=== PATIENT | male | born 1975 | race Asian ===

== ENCOUNTER 2021-12-04 11:05 | Outpatient (CLI) | payer BC | END 2021-12-04 23:59 | disposition home or self-care (01) | LOC: WOU 11:05 | PROVIDERS: ATTEND Podiatrist Foot & Ankle Surgery | DX: E11.69 Type 2 diabetes mellitus with other specified complication (principal); M86.671 Other chronic osteomyelitis, right ankle and foot; B38.7 Disseminated coccidioidomycosis; R60.0 Localized edema; M25.571 Pain in right ankle and joints of right foot; Z79.4 Long term (current) use of insulin; Z79.84 Long term (current) use of oral hypoglycemic drugs | CPT/HCPCS: G0463 ==

== ENCOUNTER → 2021-12-28 | Outpatient (CLI) | payer BC | END | disposition home or self-care (01) | LOC: WOU 10:10 | PROVIDERS: ATTEND Podiatrist Foot & Ankle Surgery | DX: E11.622 Type 2 diabetes mellitus with other skin ulcer (principal); L97.312 Non-pressure chronic ulcer of right ankle with fat layer exposed; E11.69 Type 2 diabetes mellitus with other specified complication; M86.171 Other acute osteomyelitis, right ankle and foot; Z79.4 Long term (current) use of insulin; Z79.84 Long term (current) use of oral hypoglycemic drugs; B38.7 Disseminated coccidioidomycosis; R60.0 Localized edema; M25.571 Pain in right ankle and joints of right foot | CPT/HCPCS: G0463 ==

== ENCOUNTER 2022-01-02 10:10 | Outpatient (CLI) | payer BC | END 2022-01-02 23:59 | disposition home or self-care (01) | LOC: WOU 10:10 | PROVIDERS: ATTEND Specialist | DX: E11.69 Type 2 diabetes mellitus with other specified complication (principal); M86.171 Other acute osteomyelitis, right ankle and foot; B38.7 Disseminated coccidioidomycosis; E11.621 Type 2 diabetes mellitus with foot ulcer; L97.412 Non-pressure chronic ulcer of right heel and midfoot with fat layer exposed; Z79.4 Long term (current) use of insulin; Z79.84 Long term (current) use of oral hypoglycemic drugs; R60.0 Localized edema; M25.571 Pain in right ankle and joints of right foot | CPT/HCPCS: G0463 ==

== ENCOUNTER 2022-01-14 12:46 | Outpatient (CLI) | payer BC | END 2022-01-14 23:59 | disposition home or self-care (01) | LOC: MRI 12:46 | PROVIDERS: ATTEND Podiatrist Foot & Ankle Surgery | DX: S93.491A Sprain of other ligament of right ankle, initial encounter (principal); M25.471 Effusion, right ankle; M65.871 Other synovitis and tenosynovitis, right ankle and foot; M25.871 Other specified joint disorders, right ankle and foot; X58.XXXA Exposure to other specified factors, initial encounter; Y93.89 Activity, other specified; Y92.89 Other specified places as the place of occurrence of the external cause; Y99.8 Other external cause status | CPT/HCPCS: 73721-TC ==

== ENCOUNTER → 2022-01-15 | Outpatient (CLI) | payer BC ==
[2022-01-15 12:55] LABS: BASOPHILS # (AUTO) 0.1 K/uL (0.0-0.2); BASOPHILS % (AUTO) 1.2 % (0.0-2.0); HEMATOCRIT 50 % (39-51); HEMOGLOBIN 16.5 g/dL (13.5-17.5); LYMPHOCYTES # (AUTO) 0.8 K/uL (0.8-4.8); LYMPHOCYTES % (AUTO) 9.5 % (20.0-44.0); MEAN CORPUSCULAR HGB CONC 33 g/dl (31.0-36.0); MEAN CORPUSCULAR VOLUME 89 fL (80-96); MONOCYTES # (AUTO) 0.6 K/uL (0.1-1.30); MONOCYTES % (AUTO) 7.6 % (2.0-12.0); NEUTROPHILS # (AUTO) 6.4 K/uL (1.8-8.9); NEUTROPHILS % (AUTO) 78.7 % (43.0-81.0); PLATELET COUNT (AUTO) 273 K/uL (150-450); RED BLOOD CELL COUNT(AUTO) 5.64 MIL/uL (4.5-6.0); WHITE BLOOD COUNT (AUTO) 8.1 K/uL (4.3-11.0)
== END | disposition home or self-care (01) ==
LOC: LAB 12:31
PROVIDERS: ATTEND Specialist
DX: R91.8 Other nonspecific abnormal finding of lung field (principal); M79.89 Other specified soft tissue disorders; M77.51 Other enthesopathy of right foot and ankle; M25.571 Pain in right ankle and joints of right foot; M86.171 Other acute osteomyelitis, right ankle and foot; R05.9 Cough, unspecified
CPT/HCPCS: 36415; 71046; 73600-TC; 85025-TC; 85652-TC; 86140-TC

== ENCOUNTER 2022-01-25 08:50 | Outpatient (CLI) | payer BC | END 2022-01-25 23:59 | disposition home or self-care (01) | LOC: WOU 08:50 | PROVIDERS: ATTEND Podiatrist Foot & Ankle Surgery | DX: E11.622 Type 2 diabetes mellitus with other skin ulcer (principal); L97.312 Non-pressure chronic ulcer of right ankle with fat layer exposed; E11.69 Type 2 diabetes mellitus with other specified complication; M86.171 Other acute osteomyelitis, right ankle and foot; Z79.84 Long term (current) use of oral hypoglycemic drugs; Z79.4 Long term (current) use of insulin; B38.7 Disseminated coccidioidomycosis | CPT/HCPCS: G0463 ==

== ENCOUNTER 2022-02-14 12:31 | Outpatient (CLI) | payer BC ==
[2022-02-14 13:37] LABS: BASOPHILS # (AUTO) 0.1 K/uL (0.0-0.2); BASOPHILS % (AUTO) 0.9 % (0.0-2.0); HEMATOCRIT 50 % (39-51); HEMOGLOBIN 16.3 g/dL (13.5-17.5); LYMPHOCYTES # (AUTO) 0.6 K/uL (0.8-4.8); MEAN CORPUSCULAR HGB CONC 33 g/dl (31.0-36.0); MEAN CORPUSCULAR VOLUME 88 fL (80-96); MONOCYTES # (AUTO) 0.5 K/uL (0.1-1.30); MONOCYTES % (AUTO) 6.4 % (2.0-12.0); NEUTROPHILS # (AUTO) 6.3 K/uL (1.8-8.9); NEUTROPHILS % (AUTO) 79.7 % (43.0-81.0); PLATELET COUNT (AUTO) 291 K/uL (150-450); RED BLOOD CELL COUNT(AUTO) 5.69 MIL/uL (4.5-6.0); WHITE BLOOD COUNT (AUTO) 7.9 K/uL (4.3-11.0)
== END 2022-02-14 23:59 | disposition home or self-care (01) ==
LOC: LAB 12:31
PROVIDERS: ATTEND Podiatrist Foot & Ankle Surgery
DX: M86.171 Other acute osteomyelitis, right ankle and foot (principal)
CPT/HCPCS: 36415; 85025-TC; 85652-TC; 86140-TC

== ENCOUNTER 2022-02-20 13:00 | Outpatient (CLI) | payer BC | END 2022-02-20 23:59 | disposition home or self-care (01) | LOC: WOU 13:00 | PROVIDERS: ATTEND Podiatrist Foot & Ankle Surgery | DX: E11.622 Type 2 diabetes mellitus with other skin ulcer (principal); L97.312 Non-pressure chronic ulcer of right ankle with fat layer exposed; E11.69 Type 2 diabetes mellitus with other specified complication; M86.171 Other acute osteomyelitis, right ankle and foot; R60.0 Localized edema; B38.7 Disseminated coccidioidomycosis; M25.571 Pain in right ankle and joints of right foot; Z79.4 Long term (current) use of insulin; Z79.84 Long term (current) use of oral hypoglycemic drugs | CPT/HCPCS: 11042; 87077; 87070; 87186; A6209 ==

== ENCOUNTER 2022-02-22 10:45 | Outpatient (CLI) | payer BC ==
[2022-02-22] MEDS ORDERED: LIDOCAINE SOLN 4% 50 ML BOTTLE ONE (11:06)
[2022-02-22] MEDS ORDERED: FLUC200T8 PO (17:46)
[2022-02-22] MEDS ORDERED: INSU100V7 SQ (17:46)
[2022-02-22] MEDS ORDERED: INSU100C10 SQ (17:46)
[2022-02-22] MEDS ORDERED: METF-442 PO (17:46)
[2022-02-22] MEDS ORDERED: EZET10TA16 PO (17:46)
[2022-02-22] MEDS ORDERED: ROSU40TA PO (17:46)
[2022-02-22] MEDS ORDERED: OMEG1CAP55 PO (17:46)
[2022-02-22] MEDS ORDERED: IRBE150T28 PO (17:46)
[2022-02-22] MEDS ORDERED: FENO145T21 PO (17:46)
== END 2022-02-22 23:59 | disposition home or self-care (01) ==
LOC: WOU 10:45
PROVIDERS: ATTEND Podiatrist Foot & Ankle Surgery
DX: E11.622 Type 2 diabetes mellitus with other skin ulcer (principal); L97.312 Non-pressure chronic ulcer of right ankle with fat layer exposed; E11.69 Type 2 diabetes mellitus with other specified complication; M86.171 Other acute osteomyelitis, right ankle and foot; Z79.4 Long term (current) use of insulin; Z79.84 Long term (current) use of oral hypoglycemic drugs; B38.7 Disseminated coccidioidomycosis; M25.571 Pain in right ankle and joints of right foot
CPT/HCPCS: G0463

== ENCOUNTER 2022-02-22 16:22 | Inpatient (IN) | payer BC ==
[~2022-02-22] VITALS: Ht 185.4 cm; Wt 95.3 kg
[2022-02-22] MEDS ORDERED: ROSU40TA PO (17:46)
[2022-02-22] MEDS ORDERED: EZET10TA16 PO (17:46)
[2022-02-22] MEDS ORDERED: FLUC200T8 PO (17:46)
[2022-02-22] MEDS ORDERED: INSU100C10 SQ (17:46)
[2022-02-22] MEDS ORDERED: IRBE150T28 PO (17:46)
[2022-02-22] MEDS ORDERED: OMEG1CAP55 PO (17:46)
[2022-02-22] MEDS ORDERED: INSU100V7 SQ (17:46)
[2022-02-22] MEDS ORDERED: METF-442 PO (17:46)
[2022-02-22] MEDS ORDERED: FENO145T21 PO (17:46)
--- NOTE | 2022-02-22 17:50 | NUR ---
SALINE LOCK ESTABLISHED, BLOOD DRAWN AND SENT TO LAB
--- NOTE | 2022-02-22 18:00 | NUR ---
COVID SWAB DONE AND SENT TO LAB
[2022-02-22 18:14] LABS: BASOPHILS # (AUTO) 0.1 K/uL (0.0-0.2); BASOPHILS % (AUTO) 0.9 % (0.0-2.0); EOSINOPHILS % (AUTO) 3.3 % (0.0-6.0); HEMATOCRIT 51 % (39-51); HEMOGLOBIN 16.6 g/dL (13.5-17.5); LYMPHOCYTES # (AUTO) 0.5 K/uL (0.8-4.8); LYMPHOCYTES % (AUTO) 5.3 % (20.0-44.0); MEAN CORPUSCULAR HGB CONC 33 g/dl (31.0-36.0); MEAN CORPUSCULAR VOLUME 89 fL (80-96); MONOCYTES # (AUTO) 0.6 K/uL (0.1-1.30); MONOCYTES % (AUTO) 7.7 % (2.0-12.0); NEUTROPHILS % (AUTO) 82.8 % (43.0-81.0); PLATELET COUNT (AUTO) 317 K/uL (150-450); RED BLOOD CELL COUNT(AUTO) 5.68 MIL/uL (4.5-6.0); WHITE BLOOD COUNT (AUTO) 8.5 K/uL (4.3-11.0)
--- NOTE | 2022-02-22 18:23 | NUR ---
TAKEN TO CT VIA CARLOS
[2022-02-22] MEDS ORDERED: MAG HYDROX/AL HYDROX/SIMETH 30 ML UDC PO PRN (18:30)
[2022-02-22] MEDS ORDERED: ACETAMINOPHEN 325 MG TABLET PO PRN (18:30)
[2022-02-22] MEDS ORDERED: DEXTROSE 50%-WATER 50 ML DISP.SYRIN IV PRN (18:30)
[2022-02-22] MEDS ORDERED: ONDANSETRON HCL/PF 4 MG/2 ML VIAL IVP PRN (18:30)
[2022-02-22] MEDS ORDERED: hydrALAZINE HCL IV 20 MG VIAL IV PRN (18:30)
[2022-02-22 18:40] LABS: ALBUMIN 1.6 g/dL (3.4-5.0); BILIRUBIN,DIRECT 0.1 mg/dL (0.0-0.2); BILIRUBIN,TOTAL 0.4 mg/dL (0.2-1.0); CREATININE 1.2 mg/dL (0.6-1.3); POTASSIUM 4.2 mmol/L (3.5-5.1); TOTAL PROTEIN, SERUM 5.5 g/dL (6.4-8.2)
[2022-02-22] MEDS ORDERED: VANCOMYCIN 1 GM in IV D5W 250 ML IV ONE (19:00)
[2022-02-22] MEDS ORDERED: ENOXAPARIN SODIUM 40 MG/0.4 ML DISP.SYRIN SQ SCH (19:00)
[2022-02-22] MEDS ORDERED: ENOXAPARIN SODIUM 40 MG/0.4 ML DISP.SYRIN SQ ONE (19:14)
--- NOTE | 2022-02-22 19:45 | NUR ---
ROOM 309-2
--- NOTE | 2022-02-22 20:06 | NUR ---
REPORT GIVEN TO JOSE RANDLE FOR KARI
[2022-02-22] MEDS ORDERED: VANCOMYCIN 500 MG in IV D5W 100ml IV ONE (20:30)
[2022-02-22 20:35] VITALS: BP 122/76
--- NOTE | 2022-02-22 20:39 | NUR ---
PT TRANSFERRED TO 3W VIA ACLS PROTOCOL. VSS. ALL BELONGINGS WITH PT.
[2022-02-22 21:00] VITALS: BP 122/76
--- NOTE | 2022-02-22 21:00 | NUR ---
MS RN OPENING NOTES RECEIVED PATIENT FROM ER VIA [place]. PATIENT IS STABLE, AMBULATORY, AWAKE, ALERT AND ORIENTED X 4. ABLE TO MAKE NEEDS KNOWN. BREATHING EVEN AND NONLABORED. ON ROOM AIR; TOLERATED WELL. VS TAKEN AND RECORDED FOLLOWS: TEMP-98.3, WA-94, RR-20, 02 SAT-98%, BP-122/76. WITH IV ACCESS ON LEFT FOREARM 20g; PATENT, INTACT AND SALINE LOCKED. BODY ASSESSMENT DONE: SKIN WARM TO TOUCH. PICTURES TAKEN AND PLACE TO CHART. INVENTORY OF PERSONAL BELONGINGS DONE. ORIENTED TO STAFF, ROOM AND UNIT. SAFETY MEASURES IMPLEMENTED: CALL LIGHT AND TABLE WITHIN REACH, SIDE RAILS UP X 2, BED IN LOWEST LOCKED POSITION. WILL CONTINUE TO MONITOR
[2022-02-22] MEDS ORDERED: MAGNESIUM HYDROXIDE 30 ML UDC PO PRN (22:00)
[2022-02-22] MEDS ORDERED: ZOLPIDEM TARTRATE 5 MG TABLET PO PRN (22:00)
[2022-02-22] MEDS: BLOOD SUGAR DIAGNOSTIC 1 EACH STRIP IN SCH (22:58)
[2022-02-22] MEDS: MEROPENEM 500 MG in IV NS 0.9% 50 ML IV SCH (23:21)
[2022-02-22] MEDS: INSULIN REGULAR, HUMAN 100 UNIT/ML 3 ML VIAL SQ PRN (23:25)
[2022-02-22] MEDS: HYDROCODONE/APAP 5/325MG TABLET PO PRN (23:39)
--- NOTE | 2022-02-22 23:39 | NUR ---
RN NOTES PATIENT C/O RIGHT ANKLE PAIN 12/23. PRN NORCO 5/325 MG 1 TAB GIVEN PO ORDERED; WILL CONTINUE TO MONITOR AND REASSESS PT.
[2022-02-23] MEDS: MEROPENEM 500 MG in IV NS 0.9% 50 ML IV SCH ×3 (05:30→21:00)
[2022-02-23 06:30] LABS: BASOPHILS # (AUTO) 0.1 K/uL (0.0-0.2); BASOPHILS % (AUTO) 1.2 % (0.0-2.0); EOSINOPHILS % (AUTO) 5.3 % (0.0-6.0); HEMATOCRIT 45 % (39-51); HEMOGLOBIN 14.6 g/dL (13.5-17.5); LYMPHOCYTES # (AUTO) 0.6 K/uL (0.8-4.8); LYMPHOCYTES % (AUTO) 8.7 % (20.0-44.0); MEAN CORPUSCULAR HGB CONC 33 g/dl (31.0-36.0); MEAN CORPUSCULAR VOLUME 89 fL (80-96); MONOCYTES # (AUTO) 0.7 K/uL (0.1-1.30); NEUTROPHILS # (AUTO) 4.9 K/uL (1.8-8.9); NEUTROPHILS % (AUTO) 74.8 % (43.0-81.0); PLATELET COUNT (AUTO) 253 K/uL (150-450); RED BLOOD CELL COUNT(AUTO) 5.02 MIL/uL (4.5-6.0); WHITE BLOOD COUNT (AUTO) 6.6 K/uL (4.3-11.0)
[2022-02-23] MEDS: BLOOD SUGAR DIAGNOSTIC 1 EACH STRIP IN SCH ×4 (06:33→22:02)
--- NOTE | 2022-02-23 06:55 | NUR ---
MS RN CLOSING NOTES PATIENT IN BED; AWAKE, A/O X 4. BREATHING EVEN AND NONLABORED. STABLE ON ROOM AIR. WITH IV ACCESS @ LEFT FOREARM 20g; PATENT, INTACT AND SALINE LOCKED. ALL NEEDS MET. SAFETY MEASURES MAINTAINED: CALL LIGHT AND TABLE WITHIN REACH, SIDE RAILS UP X 2, BED IN LOWEST LOCKED POSITION. ENDORSED TO PEPPER GARCIA FOR KARI.
--- NOTE | 2022-02-23 07:00 | NUR ---
MS RN OPENING NOTES PATIENT A/O X 4, ABLE TO MAKE NEEDS KNOWN, TOLERATING WELL ON ROOM AIR WITH NO S/S RESPIRATORY DISTRESS. NO COMPLAINTS OF PAIN OR DISCOMFORT. L FA # 20 G SL CLEAN, INTACT, AND FLUSHING WELL. SAFETY MEASURES IN PLACE: BED IN LOWEST LOCKED POSITION, SIDE RAILS UP X 2, CALL LIGHT WITHIN REACH. WILL CONTINUE TO MONITOR.
[2022-02-23 07:05] LABS: MAGNESIUM 2.3 mg/dL (1.8-2.4); PHOSPHORUS 4.7 mg/dL (2.5-4.9); POTASSIUM 3.9 mmol/L (3.5-5.1)
[2022-02-23 08:00] VITALS: BP 111/74
[2022-02-23] MEDS: VANCOMYCIN 1.25 GM in IV D5W 250 ML IV SCH ×2 (08:11→20:24)
[2022-02-23] MEDS: EZETIMIBE 10 MG TABLET PO SCH (08:11)
[2022-02-23] MEDS: LOSARTAN POTASSIUM 50 MG TABLET PO SCH (08:11)
[2022-02-23] MEDS: FENOFIBRATE NANOCRYS (145 MG) 145 MG TABLET PO SCH (08:12)
[2022-02-23] MEDS: ATORVASTATIN 40 MG TABLET PO SCH (08:12)
[2022-02-23] MEDS: INSULIN GLARGINE, 100 UNIT/ML CARTRIDGE SQ SCH ×2 (08:20→16:30)
[2022-02-23] MEDS ORDERED: Medication Not On Formulary EA (Omega-3 Acid Ethyl Esters (Lovaza) 1 GM) PO SCH (09:00)
[2022-02-23] MEDS ORDERED: Medication Not On Formulary EA (Irbesartan (Avapro) 150 MG) PO SCH (09:00)
[2022-02-23] MEDS ORDERED: Medication Not On Formulary EA (Rosuvastatin Calcium (Crestor) 40 MG) PO SCH (09:00)
[2022-02-23] MEDS ORDERED: Z GUARD REMEDY 4 OZ OINT TP PRN (09:00)
[2022-02-23 16:00] VITALS: BP 107/76
[2022-02-23] MEDS ORDERED: FENTANYL PF 100MCG/2ML AMPUL ONE ×2 (16:05→17:44)
[2022-02-23] MEDS ORDERED: SUCCINYLCHOLINE CHLORIDE 20 MG/ML VIAL ONE (16:05)
[2022-02-23] MEDS ORDERED: VANCOMYCIN 1 GM VIAL ONE (17:08)
[2022-02-23] MEDS: HYDROCODONE/APAP 5/325MG TABLET PO PRN (18:53)
--- NOTE | 2022-02-23 19:56 | NUR ---
RECEIVED PATIENT IN BED, ALERT/ORIENTED X4, ROOM AIR, MINIMAL COMPLAIN OF PAIN, S/P RIGHT ANKLE DEBRIDEMENT BY DR. MANZANO, RIGHT ANKLE WITH SAMEERA WRAP WITH TOES EXPOSED, ICE APPLIED, DENIES NUMBNESS, ABLE TO WIGGLE TOES, BRISK CAPILLARY REFILL, KEPT RIGHT FOOT ELEVATED. KEPT SAFE, WILL CONTINUE TO MONITOR.
[2022-02-23 20:00] VITALS: BP 100/69
[2022-02-23] MEDS: MORPHINE SULFATE INJ 4 MG/ML DISP.SYRIN IV PRN ×2 (20:54→21:35)
[2022-02-23 21:00] VITALS: BP 101/72
[2022-02-23 22:00] VITALS: BP 102/68
[2022-02-23] MEDS: INSULIN REGULAR, HUMAN 100 UNIT/ML 3 ML VIAL SQ PRN (22:00)
[2022-02-24] VITALS: BP 121/63
[2022-02-24] MEDS: MEROPENEM 500 MG in IV NS 0.9% 50 ML IV SCH ×3 (04:16→20:22)
--- NOTE | 2022-02-24 06:02 | NUR ---
S/P right ankle debridement by Dr. Kramer, alert/oriented x4, room air, pain managed by Currie 1 tablet and Morphine 4 mg IV with adequate relief. Dressing dry and intact, bias wrap, ras wrap, offloaded, denies numbness, able to wiggle toes, brisk capillary refill, NWB for now. Lovenox q24hrs, restart at 0700. Vancomycin and Merrem, continue pain control, accucheck ACHS with sliding scale, fall precaution.
[2022-02-24 06:20] LABS: BASOPHILS # (AUTO) 0.1 K/uL (0.0-0.2); BASOPHILS % (AUTO) 1.1 % (0.0-2.0); EOSINOPHILS % (AUTO) 3.1 % (0.0-6.0); HEMATOCRIT 47 % (39-51); HEMOGLOBIN 15.3 g/dL (13.5-17.5); LYMPHOCYTES # (AUTO) 0.5 K/uL (0.8-4.8); LYMPHOCYTES % (AUTO) 5.7 % (20.0-44.0); MEAN CORPUSCULAR HGB CONC 32 g/dl (31.0-36.0); MEAN CORPUSCULAR VOLUME 90 fL (80-96); MONOCYTES # (AUTO) 0.9 K/uL (0.1-1.30); MONOCYTES % (AUTO) 9.9 % (2.0-12.0); NEUTROPHILS % (AUTO) 80.2 % (43.0-81.0); PLATELET COUNT (AUTO) 269 K/uL (150-450); RED BLOOD CELL COUNT(AUTO) 5.23 MIL/uL (4.5-6.0); WHITE BLOOD COUNT (AUTO) 8.7 K/uL (4.3-11.0)
[2022-02-24] MEDS: ENOXAPARIN SODIUM 40 MG/0.4 ML DISP.SYRIN SQ SCH (06:20)
[2022-02-24] MEDS: BLOOD SUGAR DIAGNOSTIC 1 EACH STRIP IN SCH ×4 (06:31→22:49)
[2022-02-24] MEDS: INSULIN REGULAR, HUMAN 100 UNIT/ML 3 ML VIAL SQ PRN ×3 (06:40→22:48)
--- NOTE | 2022-02-24 07:00 | NUR ---
MS RN OPENING NOTES PATIENT LAYING IN BED A/O X 4, ABLE TO MAKE NEEDS KNOWN, TOLERATING WELL ON ROOM AIR WITH NO S/S RESPIRATORY DISTRESS. NO COMPLAINTS OF PAIN OR DISCOMFORT. L FA # 20 G SL CLEAN, INTACT, AND FLUSHING WELL. L WRIST # 20 G SL CLEAN, INTACT, AND FLUSHING WELL. LEFT LEG WITH SAMEERA BANDAGE DRESSING C/D/I. SAFETY MEASURES IN PLACE: BED IN LOWEST LOCKED POSITION, SIDE RAILS UP X 2, CALL LIGHT WITHIN REACH. WILL CONTINUE TO MONITOR.
[2022-02-24] MEDS: VANCOMYCIN 1.25 GM in IV D5W 250 ML IV SCH ×2 (07:55→20:21)
[2022-02-24 08:00] LABS: CALCIUM, SERUM 7.8 mg/dL (8.5-10.1); CREATININE 1.1 mg/dL (0.6-1.3); POTASSIUM 4.6 mmol/L (3.5-5.1)
[2022-02-24] MEDS: ATORVASTATIN 40 MG TABLET PO SCH (08:46)
[2022-02-24] MEDS: FENOFIBRATE NANOCRYS (145 MG) 145 MG TABLET PO SCH (08:46)
[2022-02-24] MEDS: LOSARTAN POTASSIUM 50 MG TABLET PO SCH (08:46)
[2022-02-24] MEDS: EZETIMIBE 10 MG TABLET PO SCH (08:46)
[2022-02-24] MEDS: INSULIN GLARGINE, 100 UNIT/ML CARTRIDGE SQ SCH ×2 (08:55→17:40)
[2022-02-24 20:00] VITALS: BP 105/85
--- NOTE | 2022-02-24 20:01 | NUR ---
MS RN OPENING NOTES PATIENT IN BED AA/O X 4, ABLE TO MAKE NEEDS KNOWN, TOLERATING WELL ON ROOM AIR WITH NO SIGN SOB/RESPIRATORY DISTRESS NOTED.L FA # 20 G SL CLEAN, INTACT, AND FLUSHING WELL.S/P RIGHT ANKLE DEBRIDEMENT BANDAGE INTACT NO BLEEDING NOTED. SAFETY MEASURES IN PLACE: BED IN LOWEST LOCKED POSITION, SIDE RAILS UP X 2, CALL LIGHT WITHIN REACH. WILL CONTINUE TO MONITOR.
[2022-02-24] MEDS: HYDROCODONE/APAP 5/325MG TABLET PO PRN (20:33)
[2022-02-25] MEDS: MEROPENEM 500 MG in IV NS 0.9% 50 ML IV SCH ×2 (04:46→13:09)
[2022-02-25] MEDS: ENOXAPARIN SODIUM 40 MG/0.4 ML DISP.SYRIN SQ SCH (06:09)
--- NOTE | 2022-02-25 06:39 | NUR ---
MS RN CLOSING NOTES; PATIENT IN BED AA/O X 4, ABLE TO MAKE NEEDS KNOWN, TOLERATING WELL ON ROOM AIR WITH NO SIGN SOB/RESPIRATORY DISTRESS NOTED.DUE MEDS GIVEN ORDER,ALL NEEDS ATTENDED,L FA # 20 G SL CLEAN, INTACT, AND FLUSHING WELL.S/P RIGHT ANKLE DEBRIDEMENT BANDAGE INTACT NO BLEEDING NOTED. SAFETY MEASURES IN PLACE: BED IN LOWEST LOCKED POSITION, SIDE RAILS UP X 2, CALL LIGHT WITHIN REACH. WILL ENDORSED TO NEXT SHIFT.
[2022-02-25 06:53] LABS: BASOPHILS # (AUTO) 0.1 K/uL (0.0-0.2); BASOPHILS % (AUTO) 0.8 % (0.0-2.0); EOSINOPHILS % (AUTO) 2.2 % (0.0-6.0); HEMATOCRIT 48 % (39-51); HEMOGLOBIN 15.4 g/dL (13.5-17.5); LYMPHOCYTES # (AUTO) 0.4 K/uL (0.8-4.8); LYMPHOCYTES % (AUTO) 4.8 % (20.0-44.0); MEAN CORPUSCULAR HGB CONC 32 g/dl (31.0-36.0); MEAN CORPUSCULAR VOLUME 90 fL (80-96); MONOCYTES # (AUTO) 0.8 K/uL (0.1-1.30); MONOCYTES % (AUTO) 8.7 % (2.0-12.0); NEUTROPHILS # (AUTO) 7.3 K/uL (1.8-8.9); NEUTROPHILS % (AUTO) 83.5 % (43.0-81.0); PLATELET COUNT (AUTO) 255 K/uL (150-450); RED BLOOD CELL COUNT(AUTO) 5.31 MIL/uL (4.5-6.0); WHITE BLOOD COUNT (AUTO) 8.7 K/uL (4.3-11.0)
--- NOTE | 2022-02-25 07:16 | NUR ---
MS RN OPENING NOTE PATIENT IN BED A/O X 4, ABLE TO MAKE NEEDS KNOWN, TOLERATING WELL ON ROOM AIR WITH NO SIGN SOB/RESPIRATORY DISTRESS NOTED. WITH LEFT FA G 20A ND L WRIST G 20 PATENT AND INTACT. WITH RIGHT ANKLE DRESSING COVERED WITH ELASTIC BANDAGE. NO SIGNS OF BLEEDING. NO COMPLAIN OF PAIN. WILL CONTINUE TO MONITOR PATIENT. SAFETY MEASURES IN PLACE: BED IN LOWEST LOCKED POSITION, SIDE RAILS UP X 2, CALL LIGHT WITHIN REACH. WILL CONTINUE TO MONITOR.
[2022-02-25] MEDS: BLOOD SUGAR DIAGNOSTIC 1 EACH STRIP IN SCH ×4 (08:01→22:37)
[2022-02-25] MEDS: VANCOMYCIN 1.25 GM in IV D5W 250 ML IV SCH (08:08)
[2022-02-25 08:21] LABS: CALCIUM, SERUM 7.8 mg/dL (8.5-10.1); CREATININE 0.9 mg/dL (0.6-1.3)
[2022-02-25] MEDS: EZETIMIBE 10 MG TABLET PO SCH (08:43)
[2022-02-25] MEDS: FENOFIBRATE NANOCRYS (145 MG) 145 MG TABLET PO SCH (08:43)
[2022-02-25] MEDS: LOSARTAN POTASSIUM 50 MG TABLET PO SCH (08:43)
[2022-02-25] MEDS: ATORVASTATIN 40 MG TABLET PO SCH (08:43)
[2022-02-25] MEDS: FUROSEMIDE 20 MG/2 ML VIAL IV SCH (09:04)
[2022-02-25] MEDS: INSULIN GLARGINE, 100 UNIT/ML CARTRIDGE SQ SCH ×2 (09:17→18:14)
[2022-02-25 10:04] VITALS: BP 131/90
--- NOTE | 2022-02-25 11:12 | NUR ---
WOUND CARE CONSULT: PT FOLLOWED BY DR KENNEY FOR WOUND TREATMENT. DEFER TO DPM. CURRENT BARON SCORE IS 23. WILL SEE PRN.
[2022-02-25] MEDS: HYDROCODONE/APAP 5/325MG TABLET PO PRN ×2 (13:19→22:16)
[2022-02-25] MEDS ORDERED: CEFAZOLIN 1 GM VIAL IM SCH (13:30)
[2022-02-25] MEDS: CEFAZOLIN 2 GM in IV D5W 100 ML IV SCH ×2 (14:34→21:45)
[2022-02-25 17:55] VITALS: BP 104/78
[2022-02-25] MEDS: INSULIN REGULAR, HUMAN 100 UNIT/ML 3 ML VIAL SQ PRN ×2 (18:17→22:20)
--- NOTE | 2022-02-25 19:00 | NUR ---
MS RN CLOSING NOTE PATIENT IN BED A/O X 4, ABLE TO MAKE NEEDS KNOWN, TOLERATING WELL ON ROOM AIR WITH NO SIGN SOB/RESPIRATORY DISTRESS NOTED. WITH LEFT FA G 20A ND L WRIST G 20 PATENT AND INTACT. WITH RIGHT ANKLE DRESSING COVERED WITH ELASTIC BANDAGE. NO SIGNS OF BLEEDING. NO COMPLAIN OF PAIN. WILL CONTINUE TO MONITOR PATIENT. SAFETY MEASURES IN PLACE: BED IN LOWEST LOCKED POSITION, SIDE RAILS UP X 2, CALL LIGHT WITHIN REACH. WILL ENDORSE TO NEXT SHIFT FOR CONTINUITY OF CARE.
--- NOTE | 2022-02-25 19:40 | NUR ---
MS RN CLOSING NOTES; PATIENT IN BED AA/O X 4, ABLE TO MAKE NEEDS KNOWN, TOLERATING WELL ON ROOM AIR WITH NO SIGN SOB/RESPIRATORY DISTRESS NOTED.DUE MEDS GIVEN ORDER,ALL NEEDS ATTENDED,RAC 22G-SL PATENT AND INTACT FLUSHING WELL.S/P RIGHT ANKLE DEBRIDEMENT BANDAGE INTACT NO BLEEDING NOTED. SAFETY MEASURES IN PLACE: BED IN LOWEST LOCKED POSITION, SIDE RAILS UP X 2, CALL LIGHT WITHIN REACH. WILL ENDORSED TO NEXT SHIFT.
[2022-02-25 20:00] VITALS: BP 101/74
[2022-02-26] MEDS: CEFAZOLIN 2 GM in IV D5W 100 ML IV SCH ×2 (04:48→13:13)
[2022-02-26 06:10] LABS: BASOPHILS % (AUTO) 0.7 % (0.0-2.0); EOSINOPHILS % (AUTO) 5.3 % (0.0-6.0); HEMATOCRIT 47 % (39-51); HEMOGLOBIN 15.1 g/dL (13.5-17.5); LYMPHOCYTES # (AUTO) 0.5 K/uL (0.8-4.8); LYMPHOCYTES % (AUTO) 8.5 % (20.0-44.0); MEAN CORPUSCULAR HGB CONC 32 g/dl (31.0-36.0); MEAN CORPUSCULAR VOLUME 90 fL (80-96); MONOCYTES # (AUTO) 0.6 K/uL (0.1-1.30); MONOCYTES % (AUTO) 9.3 % (2.0-12.0); NEUTROPHILS # (AUTO) 4.6 K/uL (1.8-8.9); NEUTROPHILS % (AUTO) 76.2 % (43.0-81.0); PLATELET COUNT (AUTO) 308 K/uL (150-450); RED BLOOD CELL COUNT(AUTO) 5.23 MIL/uL (4.5-6.0); WHITE BLOOD COUNT (AUTO) 6.1 K/uL (4.3-11.0)
[2022-02-26] MEDS: ENOXAPARIN SODIUM 40 MG/0.4 ML DISP.SYRIN SQ SCH ×2 (06:19→09:35)
--- NOTE | 2022-02-26 06:29 | NUR ---
MS RN CLOSING NOTES; PATIENT IN BED AA/O X 4, ABLE TO MAKE NEEDS KNOWN, TOLERATING WELL ON ROOM AIR WITH NO SIGN SOB/RESPIRATORY DISTRESS NOTED.DUE MEDS GIVEN ORDER,ALL NEEDS ATTENDED,RAC 22 G SL , INTACT, AND FLUSHING WELL.S/P RIGHT ANKLE DEBRIDEMENT BANDAGE INTACT NO BLEEDING NOTED. SAFETY MEASURES IN PLACE: BED IN LOWEST LOCKED POSITION, SIDE RAILS UP X 2, CALL LIGHT WITHIN REACH. WILL ENDORSED TO NEXT SHIFT.
[2022-02-26] MEDS: BLOOD SUGAR DIAGNOSTIC 1 EACH STRIP IN SCH ×3 (06:43→17:07)
[2022-02-26 07:05] LABS: CALCIUM, SERUM 8.3 mg/dL (8.5-10.1); CREATININE 0.9 mg/dL (0.6-1.3); POTASSIUM 4.3 mmol/L (3.5-5.1)
--- NOTE | 2022-02-26 07:42 | NUR ---
MS RN OPENING NOTE PATIENT IN BED, ASLEEP BUT EASILY ROUSED, A/O X 4, ABLE TO MAKE NEEDS KNOWN. PT ON ROOM AIR WITH NO S/S OF SOB/ACUTE DISTRESS NOTED. IV ACCESS LEFT FA G 20A ND L WRIST G 20 PATENT AND INTACT. RIGHT ANKLE DRESSING COVERED WITH ELASTIC BANDAGE NOTED NO SIGNS OF BLEEDING. NO COMPLAIN OF PAIN. WILL CONTINUE TO MONITOR PATIENT. SAFETY MEASURES IN PLACE: BED IN LOWEST LOCKED POSITION, SIDE RAILS UP X 2, CALL LIGHT WITHIN REACH. WILL CONTINUE TO MONITOR.
[2022-02-26 08:00] VITALS: BP 110/70
[2022-02-26 08:17] LABS: C-REACTIVE PROTEIN 1.8 mg/dL (0.0-0.9)
[2022-02-26] MEDS: EZETIMIBE 10 MG TABLET PO SCH (09:31)
[2022-02-26] MEDS: LOSARTAN POTASSIUM 50 MG TABLET PO SCH (09:32)
[2022-02-26] MEDS: FUROSEMIDE 20 MG/2 ML VIAL IV SCH (09:33)
[2022-02-26] MEDS: ATORVASTATIN 40 MG TABLET PO SCH (09:33)
[2022-02-26] MEDS: FENOFIBRATE NANOCRYS (145 MG) 145 MG TABLET PO SCH (09:36)
[2022-02-26] MEDS: INSULIN GLARGINE, 100 UNIT/ML CARTRIDGE SQ SCH ×2 (09:41→17:07)
[2022-02-26] MEDS: INSULIN REGULAR, HUMAN 100 UNIT/ML 3 ML VIAL SQ PRN (12:57)
[2022-02-26] MEDS: HYDROCODONE/APAP 5/325MG TABLET PO PRN (15:41)
[2022-02-26 16:00] VITALS: BP 108/67
--- NOTE | 2022-02-26 19:32 | NUR ---
MS SUPERVISOR SELF SERVICE STORE NOTES: PT STABLE UPON DISCHARGE, VITALS WNL. BELONGINGS CHECKLIST, DC INSTRUCTIONS AND NEW PRESCRIPTIONS DISCUSSED WITH PT AND SIGNED BY PT AND RN. ALL DUE MEDICATIONS GIVEN. SPOUSE HELPED PATIENT GET DRESSED. ADVISED TO FOLLOW UP WITH [employer] ARCHITECT FOR CPM AND HOME PHARM[facility] FOR RX, VERBALIZED UNDERSTANDING. IV ACCESS AND ID BAND REMOVED. PT ESCORTED TO LOBBY BY STAFF VIA WHEELCHAIR @ 1900, USED PRIVATE CAR TRANSPORTATION. Addendum: 02/26/22 at 1936 by SURINDER PEPE RN ERROR, PLEASE DISREGARD THIS ENTRY FOR THIS PT
--- NOTE | 2022-02-26 19:36 | NUR ---
MS SENIOR INFRASTRUCTURE ARCHITECT NOTES: PT CONDITION STABLE UPON DISCHARGE. VITALS WNL. DISCHARGE INSTRUCTIONS DISCUSSED AND SIGNED BY STAFF AND PT, VALUABLES RECONCILED AND SIGNED. PICC LINE LEFT IN PLACE FOR IV ANTIBIOTICS FOR HH, PER MD ORDER. IV ACCESS, ID BAND REMOVED. PT ESCORTED TO LOBBY BY STAFF VIA WHEELCHAIR @ 1910. MET WITH SPOUSE AT THE FRONT PARKING LOT WITH PRIVATE CAR.
== END 2022-02-26 19:35 | disposition home or self-care (01) | DRG 623 ==
LOC: ER 16:26 → TRANSITION 18:29 → MED 20:00
PROVIDERS: ADMIT Nurse Practitioner Acute Care; ATTEND Internal Medicine
PROC: 0JBQ0ZZ Excision of Right Foot Subcutaneous Tissue and Fascia, Open Approach (ICD-10-PCS; principal; 2022-02-24)
PROC: 0SBF0ZZ Excision of Right Ankle Joint, Open Approach (ICD-10-PCS; 2022-02-24)
PROC: 02HV33Z Insertion of Infusion Device into Superior Vena Cava, Percutaneous Approach (ICD-10-PCS; 2022-02-26)
PROC: B548ZZA Ultrasonography of Superior Vena Cava, Guidance (ICD-10-PCS; 2022-02-26)
DX: E11.69 Type 2 diabetes mellitus with other specified complication (principal); K86.1 Other chronic pancreatitis; L97.319 Non-pressure chronic ulcer of right ankle with unspecified severity; M86.671 Other chronic osteomyelitis, right ankle and foot; E11.621 Type 2 diabetes mellitus with foot ulcer; I10 Essential (primary) hypertension; M19.071 Primary osteoarthritis, right ankle and foot; I87.8 Other specified disorders of veins; Z79.4 Long term (current) use of insulin; E78.1 Pure hyperglyceridemia; Z90.79 Acquired absence of other genital organ(s); Z79.84 Long term (current) use of oral hypoglycemic drugs; Z79.899 Other long term (current) drug therapy; E11.65 Type 2 diabetes mellitus with hyperglycemia
CPT/HCPCS: 36415; 71045-TC; 73700-TC; 80048-TC; 80061-TC; 80076-TC; 80202-TC; 82962-TC; 83605-TC; 83735-TC; 84100-TC; 85025-TC; 85652-TC; 85730-TC; 86140-TC; 87040-TC; 87070-TC; 87075-TC; 87081-TC; 87186-TC; 93970-TC; A4217; A6253; A6403; G0378; J0330; J0690; J1650; J1815; J1885; J1940; J2185; J2270; J2370; J2405; J2704; J3010; J3370; J3490; J7030; J7040; J7050; J7060

== ENCOUNTER 2022-03-08 10:50 | Outpatient (CLI) | payer BC ==
[~2022-03-08 10:50] MED LIST: EZET10TA16 PO; FENO145T21 PO; FLUC200T8 PO; INSU100C10 SQ; INSU100V7 SQ; IRBE150T28 PO; METF-442 PO; OMEG1CAP55 PO; ROSU40TA PO
[2022-03-21] MEDS ORDERED: APIX5TAB PO (09:59)
== END 2022-03-08 23:59 | disposition home or self-care (01) ==
LOC: WOU 10:50
PROVIDERS: ATTEND Podiatrist Foot & Ankle Surgery
DX: E11.622 Type 2 diabetes mellitus with other skin ulcer (principal); L97.312 Non-pressure chronic ulcer of right ankle with fat layer exposed; E11.69 Type 2 diabetes mellitus with other specified complication; M86.171 Other acute osteomyelitis, right ankle and foot; B38.7 Disseminated coccidioidomycosis; L03.115 Cellulitis of right lower limb; M00.80 Arthritis due to other bacteria, unspecified joint; T81.31XA Disruption of external operation (surgical) wound, not elsewhere classified, initial encounter; M25.571 Pain in right ankle and joints of right foot; R60.0 Localized edema; Z79.4 Long term (current) use of insulin; Z79.84 Long term (current) use of oral hypoglycemic drugs
CPT/HCPCS: 29581; A6207

== ENCOUNTER 2022-03-15 09:10 | Outpatient (CLI) | payer BC ==
[2022-03-15] MEDS ORDERED: UREA 10% -AHA 4% CREAM 57 GM TUBE ONE (09:33)
[2022-03-21] MEDS ORDERED: APIX5TAB PO (09:59)
== END 2022-03-15 23:59 | disposition home or self-care (01) ==
LOC: WOU 09:10
PROVIDERS: ATTEND Podiatrist Foot & Ankle Surgery
DX: E11.622 Type 2 diabetes mellitus with other skin ulcer (principal); L97.318 Non-pressure chronic ulcer of right ankle with other specified severity; E11.69 Type 2 diabetes mellitus with other specified complication; M86.171 Other acute osteomyelitis, right ankle and foot; B38.7 Disseminated coccidioidomycosis; M00.80 Arthritis due to other bacteria, unspecified joint; I87.2 Venous insufficiency (chronic) (peripheral); R60.0 Localized edema; M25.571 Pain in right ankle and joints of right foot; Z79.4 Long term (current) use of insulin; Z79.84 Long term (current) use of oral hypoglycemic drugs
CPT/HCPCS: 29581; A6207

== ENCOUNTER 2022-03-19 09:58 | Inpatient (IN) | payer BC ==
[~2022-03-19] VITALS: Ht 185.4 cm; Wt 102.5 kg
--- NOTE | 2022-03-19 10:39 | NUR ---
BUE swelling, since yesterday. on 3 week of 6 weeks iv antibiotic course. sent for further eval. On room air, breathing normally and unlabored. Kept comfortable, will continue to monitor accordingly.
--- NOTE | 2022-03-19 10:40 | NUR ---
blood drawned from the picc line and sent to lab.
[2022-03-19 10:49] LABS: BASOPHILS # (AUTO) 0.1 K/uL (0.0-0.2); BASOPHILS % (AUTO) 0.7 % (0.0-2.0); EOSINOPHILS % (AUTO) 2.5 % (0.0-6.0); HEMATOCRIT 48 % (39-51); HEMOGLOBIN 15.4 g/dL (13.5-17.5); LYMPHOCYTES # (AUTO) 0.5 K/uL (0.8-4.8); LYMPHOCYTES % (AUTO) 4.2 % (20.0-44.0); MEAN CORPUSCULAR HGB CONC 32 g/dl (31.0-36.0); MEAN CORPUSCULAR VOLUME 89 fL (80-96); MONOCYTES # (AUTO) 0.8 K/uL (0.1-1.30); MONOCYTES % (AUTO) 6.8 % (2.0-12.0); NEUTROPHILS # (AUTO) 9.8 K/uL (1.8-8.9); NEUTROPHILS % (AUTO) 85.8 % (43.0-81.0); PLATELET COUNT (AUTO) 222 K/uL (150-450); RED BLOOD CELL COUNT(AUTO) 5.41 MIL/uL (4.5-6.0); WHITE BLOOD COUNT (AUTO) 11.4 K/uL (4.3-11.0)
[2022-03-19 11:27] LABS: ALANINE AMINOTRANSFERASE 13 U/L (12-78); ALKALINE PHOSPHATASE 116 U/L (46-116); ASPARTATE AMINOTRANSFERASE 12 U/L (15-37); BILIRUBIN,DIRECT 0.1 mg/dL (0.0-0.2); BILIRUBIN,TOTAL 0.2 mg/dL (0.2-1.0); CALCIUM, SERUM 7.6 mg/dL (8.5-10.1); CARBON DIOXIDE 25 mmol/L (21-32); CHLORIDE 105 mmol/L (98-107); CREATININE 0.8 mg/dL (0.6-1.3); GLUCOSE 195 mg/dL (74-106); POTASSIUM 3.8 mmol/L (3.5-5.1); SODIUM SERUM 136 mmol/L (136-145); TOTAL PROTEIN, SERUM 4.2 g/dL (6.4-8.2); UREA NITROGEN, BLOOD 22 mg/dL (7-18)
[2022-03-19 11:40] LABS: ALBUMIN 1.3 g/dL (3.4-5.0)
--- NOTE | 2022-03-19 11:48 | NUR ---
covid swab collected and sent to lab.
[2022-03-19] MEDS ORDERED: CEFA1VIA19 IV (11:58)
[2022-03-19] MEDS ORDERED: FURO-144 PO (11:58)
--- NOTE | 2022-03-19 12:00 | NUR ---
called nursing sup regarding pt pic line nurse
--- NOTE | 2022-03-19 12:04 | NUR ---
CALLED NURSING [employer] MANAGER REGARDING PT BED
--- NOTE | 2022-03-19 12:26 | NUR ---
CALLED DR KENNEY, SPEAKING WITH DR DIEHL
--- NOTE | 2022-03-19 13:57 | NUR ---
GOING TO ROOM 109.
[2022-03-19] MEDS ORDERED: ENOXAPARIN SODIUM 100 MG/ML DISP.SYRIN SQ ONE ×2 (14:00→14:15)
--- NOTE | 2022-03-19 14:02 | NUR ---
Carlos ward in [facility] - 03/19/22 at 1413 by JEREMIAH room assigned 320.2
[2022-03-19] MEDS ORDERED: ENOXAPARIN SODIUM 40 MG/0.4 ML DISP.SYRIN SQ ONE (14:11)
--- NOTE | 2022-03-19 14:19 | NUR ---
report given to RN. awaiting transfer to floor.
[2022-03-19 14:28] VITALS: BP 116/76
--- NOTE | 2022-03-19 14:28 | NUR ---
AUDIO RECORDING ENGINEER ADMITTING NOTES PATIENT ADMITTED FROM ER, DX PULMONARY EMBOLISM, PT JUST HAD RIGHT ARTHROTOMY C/O DR. MORALES, WAS SENT TO ER DUE TO SWELLING ON LEFT UPPER EXTREMITY. PT RECEIVED IV ANTIBIOTIC AND ON 3RD WEEK OF 6 WEEKS. PATIENT ALERT ORIENTED X 4, ON ROOM AIR O2 SAT AT 100%, DENIES SOB, RESPIRATION UNLABORED. SINUS TACHY ON MONITOR HR 106-110, DENIES ANY CHEST PAIN OR DISCOMFORT. PAT MIDLINE IN PLACE PATENT INTACT CDI DRESSING. CCHO DIET. PATIENT WITH BANDAGE ON RT LOWER LEG, UNABLE TO TAKE PICTURE, PER PT, WILL WAIT FOR DR. MORALES. LEFT UPPER ARM SWOLLEN, NON PITTING, LEFT LOWER LEF WITH +3 TO +4 PITTING EDEMA. PATIENT ABLE TO AMBULATE TO BATHROOM WITH UNNA BOOT AND ASSIST. UNIT ORIENTATION DONE AND USE OF CALL LIGHT. BED PLACED LOW,LOCKED. SR UP X 2. ALL SAFETY MEASURES IN PLACE. INSTRUCTED TO CALL FOR ASSIST. WILL CONT TO MONITOR.
[2022-03-19 16:00] VITALS: BP 120/72
[2022-03-19] MEDS ORDERED: ONDANSETRON HCL/PF 4 MG/2 ML VIAL IVP PRN (16:00)
[2022-03-19] MEDS ORDERED: MAG HYDROX/AL HYDROX/SIMETH 30 ML UDC PO PRN (16:00)
[2022-03-19] MEDS ORDERED: *INSULIN REGULAR(HUMULIN R)HUM 100 UNIT/ML VIAL SQ PRN (16:00)
[2022-03-19] MEDS ORDERED: HYDROCODONE/APAP 5/325MG TABLET PO PRN (16:00)
[2022-03-19] MEDS ORDERED: ACETAMINOPHEN 325 MG TABLET PO PRN (16:00)
[2022-03-19] MEDS ORDERED: MAGNESIUM HYDROXIDE 30 ML UDC PO PRN (16:00)
[2022-03-19] MEDS ORDERED: Z GUARD REMEDY 4 OZ OINT TP PRN (16:00)
[2022-03-19] MEDS ORDERED: DEXTROSE 50%-WATER 50 ML DISP.SYRIN IV PRN (16:00)
[2022-03-19] MEDS: BLOOD SUGAR DIAGNOSTIC 1 EACH STRIP VI SCH ×2 (17:13→22:32)
[2022-03-19] MEDS: INSULIN GLARGINE, 100 UNIT/ML CARTRIDGE SQ SCH (17:24)
--- NOTE | 2022-03-19 18:52 | NUR ---
RN NOTES ALL NEEDS MET AT HIS TIME. PATIENT RESTING COMFORTABLY. NOT IN ANY DISTRESS. STABLE. WILL ENDORSE TO NEXT SHIFT FOR KARI.
--- NOTE | 2022-03-19 19:44 | NUR ---
RN OPENING NOTES: RECEIVED PATIENT IN BED, AWAKE, ALERT/ORIENTED X3-4 AND VERBALLY RESPONSIVE. ON ROOM AIR AND PT TOLERATED WELL. BREATHING EVEN AND UNLABORED. IV ACCESS ON PAT MIDLINE INTACT AND PATENT. NO C/O PAIN OR DISCOMFORT. NO ACUTE DISTRESS. AMBULATORY WITH ASSIST. OFFERED URINAL. LEFT UPPER ARM NOTED WITH NON PITTING EDEMA AND LLE +3 TO +4 PITTING EDEMA. ALL SAFETY MEASURES IN PLACE. SIDE RAILS UP X2, BED IN LOWEST POSITION AND LOCKED. PLACE CALL LIGHT WITH IN REACH. WILL CONTINUE TO MONITOR.
[2022-03-19 20:00] VITALS: BP 137/68
[2022-03-19] MEDS: CEFAZOLIN 1 GM in IV D5W 50 ML IV SCH (21:15)
--- NOTE | 2022-03-19 22:42 | NUR ---
RN NOTES: PT'S BLOOD SUGAR 195. 3 UNITS OF REGULAR INSULIN GIVEN. PT TOLERATED WELL. NO S/S OF HYPER/HYPOGLYCEMIA. WILL CONTINUE TO MONITOR
[2022-03-20] VITALS: BP 113/86
[2022-03-20 04:00] VITALS: BP 119/76
[2022-03-20] MEDS: CEFAZOLIN 1 GM in IV D5W 50 ML IV SCH ×3 (04:17→20:19)
[2022-03-20 06:34] LABS: BASOPHILS # (AUTO) 0.1 K/uL (0.0-0.2); BASOPHILS % (AUTO) 0.9 % (0.0-2.0); EOSINOPHILS % (AUTO) 3.8 % (0.0-6.0); HEMATOCRIT 45 % (39-51); HEMOGLOBIN 14.7 g/dL (13.5-17.5); LYMPHOCYTES # (AUTO) 0.5 K/uL (0.8-4.8); LYMPHOCYTES % (AUTO) 5.7 % (20.0-44.0); MEAN CORPUSCULAR HGB CONC 32 g/dl (31.0-36.0); MEAN CORPUSCULAR VOLUME 88 fL (80-96); MONOCYTES # (AUTO) 0.7 K/uL (0.1-1.30); MONOCYTES % (AUTO) 8.4 % (2.0-12.0); NEUTROPHILS # (AUTO) 6.9 K/uL (1.8-8.9); NEUTROPHILS % (AUTO) 81.2 % (43.0-81.0); PLATELET COUNT (AUTO) 174 K/uL (150-450); RED BLOOD CELL COUNT(AUTO) 5.16 MIL/uL (4.5-6.0); WHITE BLOOD COUNT (AUTO) 8.5 K/uL (4.3-11.0)
--- NOTE | 2022-03-20 06:45 | NUR ---
RN CLOSING NOTES: PATIENT IN BED, AWAKE, ALERT/ORIENTED X3-4 AND VERBALLY RESPONSIVE. ON ROOM AIR AND PT TOLERATED WELL. O2 SAT 97%. BREATHING EVEN AND UNLABORED. IV ACCESS ON PAT MIDLINE INTACT AND PATENT. NO C/O PAIN OR DISCOMFORT. NO ACUTE DISTRESS. AMBULATORY WITH ASSIST. ABLE TO USE URINAL.ALL DUE MEDS GIVEN ORDERED. ALL SAFETY MEASURES IN PLACE. SIDE RAILS UP X2, BED IN LOWEST POSITION AND LOCKED. PLACE CALL LIGHT WITH IN REACH. WILL ENDORSE TO MORNING SHIFT NURSE.
--- NOTE | 2022-03-20 07:30 | NUR ---
RN OPENING NOTE RECEIVED PATIENT IN BED, AWAKE, ALERT AND ORIENTED X4. PATIENT IS VERBALLY RESPONSIVE AND ABLE TO MAKE NEEDS KNOWN. PATIENT COMPLAINS OF NO PAIN OR DISCOMFORT.PAT MIDLINE INTACT AND PATENT.AMBULATORY WITH BOOT.PATIENT HAS BILATERAL UPPER AND LOWER EDEMA.ALL SAFETY MEASURES IN PLACE. SIDE RAILS UP X2, BED IN LOWEST POSITION AND LOCKED. PLACE CALL LIGHT WITH IN REACH.SIDE RAILS UP X2.
[2022-03-20 07:33] LABS: CALCIUM, SERUM 7.7 mg/dL (8.5-10.1); CREATININE 0.7 mg/dL (0.6-1.3); MAGNESIUM 1.7 mg/dL (1.8-2.4); POTASSIUM 4.2 mmol/L (3.5-5.1)
[2022-03-20] MEDS: BLOOD SUGAR DIAGNOSTIC 1 EACH STRIP VI SCH ×4 (07:51→21:41)
[2022-03-20 08:00] VITALS: BP 128/69
[2022-03-20] MEDS: INSULIN REGULAR, HUMAN 100 UNIT/ML 3 ML VIAL SQ PRN ×4 (08:05→21:44)
[2022-03-20] MEDS: ATORVASTATIN 40 MG TABLET PO SCH (08:43)
[2022-03-20] MEDS: EZETIMIBE 10 MG TABLET PO SCH (08:43)
[2022-03-20] MEDS: INSULIN GLARGINE, 100 UNIT/ML CARTRIDGE SQ SCH ×2 (08:54→17:13)
[2022-03-20] MEDS ORDERED: FENOFIBRATE NANOCRYS (145 MG) 145 MG TABLET PO SCH (09:00)
[2022-03-20 12:00] VITALS: BP 131/76
[2022-03-20] MEDS ORDERED: ENOXAPARIN SODIUM 100 MG/ML DISP.SYRIN SQ SCH (14:00)
[2022-03-20] MEDS: Magnesium 1GM/D5W 100ML PREMIX 100 ML IV SCH ×2 (14:24→15:39)
[2022-03-20] MEDS: ENOXAPARIN SODIUM 100 MG/ML DISP.SYRIN SQ SCH ×2 (14:26→20:20)
[2022-03-20 16:00] VITALS: BP 131/79
--- NOTE | 2022-03-20 19:00 | NUR ---
RN CLOSING NOTE PATIENT ALERT AND ORIENTED X4. RESTING COMFORTABLY IN BED. ALL NEEDS MET. NO SIGNS OF DISCOMFORT AT THIS TIME. PAT MIDLINE INTACT. AMBULATORY WITH BOOT. PATIENT HAS BILATERAL UPPER AND LOWER EDEMA. ALL SAFETY MEASURES IN PLACE. SIDE RAILS UP X2, BED IN LOWEST POSITION AND LOCKED. PLACE CALL LIGHT WITH IN REACH.SIDE RAILS UP X2.
--- NOTE | 2022-03-20 19:30 | NUR ---
RN OPENING NOTE RECEIVED REPORT FROM JOSE LEAL FOR KARI. PT IN BED, AWAKE, A/O X 4, ABLE TO MAKE NEEDS KNOWN. CURRENTLY ON RA, TOLERATING WELL. NO S/SX OF ACUTE RESPI DISTRESS NOTED AT THIS TIME. O2 SAT AT 99%. SINUS TACHY ON MONITOR, HR 101. IV ACCESS NOTED ON PAT MIDLINE, PATENT AND INTACT CDI DRESSING. CCHO DIET. PATIENT WITH BANDAGE ON RT LOWER LEG, PT JUST HAD RIGHT ARTHROTOMY C/O DR. MORALES, WAS SENT TO ER DUE TO SWELLING ON LEFT UPPER EXTREMITY. LEFT UPPER ARM SWOLLEN, NON PITTING, LEFT LOWER LEG WITH +3 TO +4 PITTING EDEMA. PATIENT ABLE TO AMBULATE TO BATHROOM WITH UNNA BOOT AND ASSIST. ALL SAFETY MEASURES IN PLACE: BED IN LOW POSITION, LOCKED. SR UP X 2. CALL LIGHT WITHIN REACH. WILL CONTINUE TO MONITOR.
--- NOTE | 2022-03-20 19:53 | NUR ---
RN NOTE PT COMPLAINS OF PAIN IN HIS RIGHT LEG. PT IN NO ACUTE RESPI DISTRESS UPON ASSESSMENT. GAVE NORCO PRN ORDERED. WILL CONTINUE TO MONITOR PT.
[2022-03-20 20:00] VITALS: BP 137/83
[2022-03-21] VITALS: BP 123/79
--- NOTE | 2022-03-21 01:51 | NUR ---
RN NOTE PT ASKED TO GET HIS BG CHECKED AGAIN, PT SAID HE FEELS SHAKY. TOOK HIS BG AND RESULT IS 83. ASKED PT IF HE'S HUNGRY AND REQUESTED FOR SNACKS. GAVE CRACKERS. WILL CONTINUE TO MONITOR PT.
[2022-03-21 04:00] VITALS: BP 131/83
[2022-03-21] MEDS: CEFAZOLIN 1 GM in IV D5W 50 ML IV SCH ×2 (04:20→12:46)
--- NOTE | 2022-03-21 05:30 | NUR ---
RN NOTE PT REMAINED STABLE T/O THE NIGHT. ALL VS STABLE. DUE MEDS GIVEN. NEEDS ATTENDED TO. TURNED AND REPOSITIONED. SAFETY MEASURES IN PLACE. WILL ENDORSE TO AM SHIFT NURSE FOR KARI.
[2022-03-21 06:07] LABS: BASOPHILS # (AUTO) 0.1 K/uL (0.0-0.2); BASOPHILS % (AUTO) 0.7 % (0.0-2.0); EOSINOPHILS % (AUTO) 2.6 % (0.0-6.0); HEMATOCRIT 45 % (39-51); HEMOGLOBIN 14.6 g/dL (13.5-17.5); LYMPHOCYTES # (AUTO) 0.5 K/uL (0.8-4.8); LYMPHOCYTES % (AUTO) 5.7 % (20.0-44.0); MEAN CORPUSCULAR HGB CONC 33 g/dl (31.0-36.0); MEAN CORPUSCULAR VOLUME 88 fL (80-96); MONOCYTES # (AUTO) 0.6 K/uL (0.1-1.30); MONOCYTES % (AUTO) 7.6 % (2.0-12.0); NEUTROPHILS # (AUTO) 6.7 K/uL (1.8-8.9); NEUTROPHILS % (AUTO) 83.4 % (43.0-81.0); PLATELET COUNT (AUTO) 121 K/uL (150-450); RED BLOOD CELL COUNT(AUTO) 5.06 MIL/uL (4.5-6.0)
[2022-03-21 06:32] LABS: CALCIUM, SERUM 7.8 mg/dL (8.5-10.1); CREATININE 0.7 mg/dL (0.6-1.3); MAGNESIUM 1.9 mg/dL (1.8-2.4); POTASSIUM 3.8 mmol/L (3.5-5.1)
[2022-03-21] MEDS: BLOOD SUGAR DIAGNOSTIC 1 EACH STRIP VI SCH ×3 (07:35→17:26)
--- NOTE | 2022-03-21 07:53 | NUR ---
RN OPENING NOTE RECEIVED PATIENT IN BED, ALERT AND ORIENTED X4. PATIENT IS VERBALLY RESPONSIVE AND ABLE TO MAKE NEEDS KNOWN. PATIENT COMPLAINS OF NO PAIN OR DISCOMFORT.PAT MIDLINE INTACT AND PATENT.AMBULATORY WITH BOOT.PATIENT HAS BILATERAL UPPER AND LOWER EDEMA.ALL SAFETY MEASURES IN PLACE. SIDE RAILS UP X2, BED IN LOWEST POSITION AND LOCKED. PLACE CALL LIGHT WITH IN REACH
[2022-03-21 08:00] VITALS: BP 127/87
[2022-03-21] MEDS: ATORVASTATIN 40 MG TABLET PO SCH (08:55)
[2022-03-21] MEDS: EZETIMIBE 10 MG TABLET PO SCH (08:55)
[2022-03-21] MEDS: INSULIN GLARGINE, 100 UNIT/ML CARTRIDGE SQ SCH ×2 (08:57→17:00)
[2022-03-21] MEDS ORDERED: FLUCONAZOLE (100 MG) 100 MG TABLET PO SCH (09:00)
[2022-03-21] MEDS ORDERED: FUROSEMIDE 40 MG TABLET PO SCH (09:00)
[2022-03-21] MEDS: INSULIN REGULAR, HUMAN 100 UNIT/ML 3 ML VIAL SQ PRN (09:04)
[2022-03-21] MEDS: ENOXAPARIN SODIUM 100 MG/ML DISP.SYRIN SQ SCH (09:15)
[2022-03-21] MEDS ORDERED: APIX5TAB PO (09:59)
[2022-03-21 12:00] VITALS: BP 125/96
--- NOTE | 2022-03-21 12:35 | NUR ---
WOUND CARE CONSULT: PT PRESENTS WITH MULTILAYER WRAP ON RT LOWER LEG/FOOT WHICH WAS APPLIED BY DR KENNEY YESTERDAY. DEFER TO DPM FOR WOUND TREATMENT ORDERS. WRAP IS DRY AND INTACT. WILL SEE PRN.
--- NOTE | 2022-03-21 13:23 | NUR ---
WOUND CARE: RECEIVED ORDER FROM DR KENNEY TO CHANGE WRAP ON RT LOWER LEG IN ORDER FOR PT TO HAVE VENOUS DOPPLERS, THEN REWRAP. DOPPLERS WERE COMPLETED. PT HAS CLOSED INCISION TO LEFT ANKLE WITH STERI STRIPS. SILVER OPTIFOAM APPLIED, THEN GENTLY WRAPPED WITH LAYERS OF KERLIX AND SAMEERA WRAPS FROM TOES TO KNEE. PT TOLERATED WELL. PT TO CALL FOR APPT WITH DR KENNEY.
[2022-03-21 16:00] VITALS: BP 125/96
--- NOTE | 2022-03-21 19:57 | NUR ---
patient discharged.patient signed paperwork and verbalized understanding discharge instructions. patient getting iv antibiotics through home health agency for 3 more weeks. patient refused removing iv. patient sent home with belongings. patient stable condition
--- NOTE | 2022-03-21 19:57 | NUR ---
provided education the reason for removing iv. and home health nurse will reinsert an iv. patient still refused removing iv. patient getting iv antibiotics through home health agency
== END 2022-03-21 19:56 | disposition home health service (06) | DRG 176 ==
LOC: ER 10:00 → TELE1 14:11
PROVIDERS: ADMIT Internal Medicine; ATTEND Internal Medicine
PROC: 05HB33Z Insertion of Infusion Device into Right Basilic Vein, Percutaneous Approach (ICD-10-PCS; principal; 2022-03-19)
DX: I26.99 Other pulmonary embolism without acute cor pulmonale (principal); J90 Pleural effusion, not elsewhere classified; I31.39 Other pericardial effusion (noninflammatory); M86.671 Other chronic osteomyelitis, right ankle and foot; I82.612 Acute embolism and thrombosis of superficial veins of left upper extremity; J98.11 Atelectasis; Z20.822 Contact with and (suspected) exposure to COVID-19; E11.69 Type 2 diabetes mellitus with other specified complication; I10 Essential (primary) hypertension; E78.1 Pure hyperglyceridemia; E78.5 Hyperlipidemia, unspecified; Z98.890 Other specified postprocedural states; Z79.4 Long term (current) use of insulin; Z79.84 Long term (current) use of oral hypoglycemic drugs; Z79.899 Other long term (current) drug therapy; E87.70 Fluid overload, unspecified; Z79.2 Long term (current) use of antibiotics; Z86.19 Personal history of other infectious and parasitic diseases
CPT/HCPCS: 36410; 36415; 71045-TC; 80048-TC; 80076-TC; 82962-TC; 83735-TC; 83880; 84100-TC; 84484-TC; 85025-TC; 85730-TC; 86480; 87081-TC; 87899; 93307-TC; 93970-TC; C9803; G0378; J0690; J1650; J1815; J3475; J7050; J7060

== ENCOUNTER 2022-03-27 13:55 | Outpatient (CLI) | payer BC ==
[~2022-03-27 13:55] MED LIST changes: +APIX5TAB PO; +CEFA1VIA19 IV; +CT SWABBABLE VALVE TRANS SET 1 EA INFUS.SET MC ONE; +FURO-144 PO; +IOHEXOL-350 100 ML VIAL IV ONE; +IV NS 0.9% 250 ML IV ONE
== END 2022-03-27 23:59 | disposition home or self-care (01) ==
LOC: WOU 13:55
PROVIDERS: ATTEND Podiatrist Foot & Ankle Surgery
DX: E11.621 Type 2 diabetes mellitus with foot ulcer (principal); L97.418 Non-pressure chronic ulcer of right heel and midfoot with other specified severity; E11.69 Type 2 diabetes mellitus with other specified complication; M86.171 Other acute osteomyelitis, right ankle and foot; B38.7 Disseminated coccidioidomycosis; L03.115 Cellulitis of right lower limb; M25.571 Pain in right ankle and joints of right foot; M00.80 Arthritis due to other bacteria, unspecified joint; Z79.4 Long term (current) use of insulin; Z79.84 Long term (current) use of oral hypoglycemic drugs
CPT/HCPCS: 29581; A6207; J7050; Q9967

== ENCOUNTER 2022-04-03 13:05 | Outpatient (CLI) | payer BC ==
[~2022-04-03 13:05] MED LIST changes: -CT SWABBABLE VALVE TRANS SET 1 EA INFUS.SET MC ONE; -IOHEXOL-350 100 ML VIAL IV ONE; -IV NS 0.9% 250 ML IV ONE
== END 2022-04-03 23:59 | disposition home or self-care (01) ==
LOC: WOU 13:05
PROVIDERS: ATTEND Podiatrist Foot & Ankle Surgery
DX: E11.622 Type 2 diabetes mellitus with other skin ulcer (principal); L97.318 Non-pressure chronic ulcer of right ankle with other specified severity; E11.69 Type 2 diabetes mellitus with other specified complication; M86.171 Other acute osteomyelitis, right ankle and foot; R60.0 Localized edema; B38.7 Disseminated coccidioidomycosis; M25.571 Pain in right ankle and joints of right foot; Z79.4 Long term (current) use of insulin; Z79.84 Long term (current) use of oral hypoglycemic drugs
CPT/HCPCS: 29581; A6207

== ENCOUNTER 2022-04-12 09:30 | Outpatient (CLI) | payer BC ==
[2022-04-12 10:37] LABS: BASOPHILS # (AUTO) 0.1 K/uL (0.0-0.2); BASOPHILS % (AUTO) 1.1 % (0.0-2.0); EOSINOPHILS % (AUTO) 5.2 % (0.0-6.0); HEMATOCRIT 49 % (39-51); HEMOGLOBIN 16.4 g/dL (13.5-17.5); LYMPHOCYTES # (AUTO) 0.5 K/uL (0.8-4.8); LYMPHOCYTES % (AUTO) 5.4 % (20.0-44.0); MEAN CORPUSCULAR HGB CONC 34 g/dl (31.0-36.0); MEAN CORPUSCULAR VOLUME 87 fL (80-96); MONOCYTES # (AUTO) 0.6 K/uL (0.1-1.30); MONOCYTES % (AUTO) 6.4 % (2.0-12.0); NEUTROPHILS # (AUTO) 7.7 K/uL (1.8-8.9); NEUTROPHILS % (AUTO) 81.9 % (43.0-81.0); PLATELET COUNT (AUTO) 262 K/uL (150-450); RED BLOOD CELL COUNT(AUTO) 5.55 MIL/uL (4.5-6.0); WHITE BLOOD COUNT (AUTO) 9.4 K/uL (4.3-11.0)
== END 2022-04-12 23:59 | disposition home or self-care (01) ==
LOC: WOU 09:30
PROVIDERS: ATTEND Podiatrist Foot & Ankle Surgery
DX: Z00.00 Encounter for general adult medical examination without abnormal findings (principal); E11.622 Type 2 diabetes mellitus with other skin ulcer; L97.312 Non-pressure chronic ulcer of right ankle with fat layer exposed; E11.69 Type 2 diabetes mellitus with other specified complication; M86.171 Other acute osteomyelitis, right ankle and foot; I87.2 Venous insufficiency (chronic) (peripheral); B38.7 Disseminated coccidioidomycosis; M25.571 Pain in right ankle and joints of right foot; M00.80 Arthritis due to other bacteria, unspecified joint; Z79.4 Long term (current) use of insulin; R60.0 Localized edema; Z87.891 Personal history of nicotine dependence
CPT/HCPCS: 29581; 84145; 85025; 87070; 85652; 36415; 86140; A6207

== ENCOUNTER 2022-04-19 09:58 | Outpatient (CLI) | payer BC | END 2022-04-19 23:59 | disposition home or self-care (01) | LOC: WOU 09:58 | PROVIDERS: ATTEND Podiatrist Foot & Ankle Surgery | DX: E11.622 Type 2 diabetes mellitus with other skin ulcer (principal); L97.318 Non-pressure chronic ulcer of right ankle with other specified severity; T81.31XD Disruption of external operation (surgical) wound, not elsewhere classified, subsequent encounter; R60.0 Localized edema; L03.115 Cellulitis of right lower limb; M25.571 Pain in right ankle and joints of right foot; B38.7 Disseminated coccidioidomycosis; Z87.891 Personal history of nicotine dependence; Z79.4 Long term (current) use of insulin; Z79.84 Long term (current) use of oral hypoglycemic drugs | CPT/HCPCS: 99214; A6207; G0463 ==

== ENCOUNTER 2022-05-03 10:00 | Outpatient (CLI) | payer BC | END 2022-05-03 23:59 | disposition home or self-care (01) | LOC: WOU 10:00 | PROVIDERS: ATTEND Podiatrist Foot & Ankle Surgery | DX: T81.31XD Disruption of external operation (surgical) wound, not elsewhere classified, subsequent encounter (principal); S90.31XA Contusion of right foot, initial encounter; X58.XXXA Exposure to other specified factors, initial encounter; Y92.89 Other specified places as the place of occurrence of the external cause; E11.9 Type 2 diabetes mellitus without complications; B38.7 Disseminated coccidioidomycosis; M25.571 Pain in right ankle and joints of right foot; R60.0 Localized edema; Z79.4 Long term (current) use of insulin; Z79.84 Long term (current) use of oral hypoglycemic drugs | CPT/HCPCS: 29581; 73600; 73620; A6207 ==

== ENCOUNTER 2022-05-17 10:10 | Outpatient (CLI) | payer BC | END 2022-05-17 23:59 | disposition home or self-care (01) | LOC: WOU 10:10 | PROVIDERS: ATTEND Podiatrist Foot & Ankle Surgery | DX: T81.31XD Disruption of external operation (surgical) wound, not elsewhere classified, subsequent encounter (principal); B38.7 Disseminated coccidioidomycosis; E11.69 Type 2 diabetes mellitus with other specified complication; M86.671 Other chronic osteomyelitis, right ankle and foot; Z79.4 Long term (current) use of insulin; Z79.84 Long term (current) use of oral hypoglycemic drugs; M25.571 Pain in right ankle and joints of right foot; S90.31XD Contusion of right foot, subsequent encounter; X58.XXXD Exposure to other specified factors, subsequent encounter; R60.0 Localized edema | CPT/HCPCS: 29581; A6207 ==

== ENCOUNTER 2022-07-12 09:30 | Outpatient (CLI) | payer BC | END 2022-07-12 23:59 | disposition home or self-care (01) | LOC: WOU 09:30 | PROVIDERS: ATTEND Podiatrist Foot & Ankle Surgery | DX: E11.69 Type 2 diabetes mellitus with other specified complication (principal); M86.671 Other chronic osteomyelitis, right ankle and foot; E11.621 Type 2 diabetes mellitus with foot ulcer; L97.518 Non-pressure chronic ulcer of other part of right foot with other specified severity; E11.52 Type 2 diabetes mellitus with diabetic peripheral angiopathy with gangrene; I96 Gangrene, not elsewhere classified; Z79.4 Long term (current) use of insulin; Z79.84 Long term (current) use of oral hypoglycemic drugs; B38.7 Disseminated coccidioidomycosis; Z89.421 Acquired absence of other right toe(s) | CPT/HCPCS: G0463 ==

== ENCOUNTER 2022-07-17 14:00 | Outpatient (CLI) | payer BC | END 2022-07-17 23:59 | disposition home or self-care (01) | LOC: WOU 14:00 | PROVIDERS: ATTEND Podiatrist Foot & Ankle Surgery | DX: E11.52 Type 2 diabetes mellitus with diabetic peripheral angiopathy with gangrene (principal); I96 Gangrene, not elsewhere classified; E11.621 Type 2 diabetes mellitus with foot ulcer; L97.518 Non-pressure chronic ulcer of other part of right foot with other specified severity; E11.69 Type 2 diabetes mellitus with other specified complication; M86.171 Other acute osteomyelitis, right ankle and foot; B38.7 Disseminated coccidioidomycosis; M00.80 Arthritis due to other bacteria, unspecified joint; M25.571 Pain in right ankle and joints of right foot; R60.0 Localized edema; M79.671 Pain in right foot; Z79.4 Long term (current) use of insulin; Z79.84 Long term (current) use of oral hypoglycemic drugs | CPT/HCPCS: 15275; G0463 ==

== ENCOUNTER 2022-07-24 12:30 | Outpatient (CLI) | payer BC | END 2022-07-24 23:59 | disposition home or self-care (01) | LOC: WOU 12:30 | PROVIDERS: ATTEND Specialist | DX: Z01.818 Encounter for other preprocedural examination (principal); E11.621 Type 2 diabetes mellitus with foot ulcer; L97.518 Non-pressure chronic ulcer of other part of right foot with other specified severity; E11.69 Type 2 diabetes mellitus with other specified complication; M86.671 Other chronic osteomyelitis, right ankle and foot; Z79.4 Long term (current) use of insulin; Z79.84 Long term (current) use of oral hypoglycemic drugs; Z87.891 Personal history of nicotine dependence; B38.7 Disseminated coccidioidomycosis; M79.671 Pain in right foot; M25.571 Pain in right ankle and joints of right foot; J98.11 Atelectasis; J91.8 Pleural effusion in other conditions classified elsewhere | CPT/HCPCS: 71045-TC; G0463 ==

== ENCOUNTER 2022-07-30 10:30 | Outpatient (CLI) | payer BC | END 2022-07-30 23:59 | disposition home or self-care (01) | LOC: WOU 10:30 | PROVIDERS: ATTEND Podiatrist Foot & Ankle Surgery | DX: E11.621 Type 2 diabetes mellitus with foot ulcer (principal); E11.52 Type 2 diabetes mellitus with diabetic peripheral angiopathy with gangrene; E11.69 Type 2 diabetes mellitus with other specified complication; I96 Gangrene, not elsewhere classified; M86.171 Other acute osteomyelitis, right ankle and foot; L97.518 Non-pressure chronic ulcer of other part of right foot with other specified severity; R60.0 Localized edema; M79.674 Pain in right toe(s); B38.7 Disseminated coccidioidomycosis; M25.571 Pain in right ankle and joints of right foot; Z87.891 Personal history of nicotine dependence; Z79.4 Long term (current) use of insulin; Z79.84 Long term (current) use of oral hypoglycemic drugs | CPT/HCPCS: G0463 ==

== ENCOUNTER 2022-08-21 14:25 | Outpatient (CLI) | payer BC ==
[2022-08-21] MEDS ORDERED: LIDOCAINE HCL/MPF 1% 30 ML VIAL IJ ONE (15:25)
== END 2022-08-21 23:59 | disposition home or self-care (01) ==
LOC: WOU 14:25
PROVIDERS: ATTEND Podiatrist Foot & Ankle Surgery
DX: E11.621 Type 2 diabetes mellitus with foot ulcer (principal); L97.522 Non-pressure chronic ulcer of other part of left foot with fat layer exposed; E11.52 Type 2 diabetes mellitus with diabetic peripheral angiopathy with gangrene; I96 Gangrene, not elsewhere classified; E11.69 Type 2 diabetes mellitus with other specified complication; M86.171 Other acute osteomyelitis, right ankle and foot; B96.89 Other specified bacterial agents as the cause of diseases classified elsewhere; Z79.4 Long term (current) use of insulin; Z79.84 Long term (current) use of oral hypoglycemic drugs; Z79.01 Long term (current) use of anticoagulants; B38.7 Disseminated coccidioidomycosis; M00.80 Arthritis due to other bacteria, unspecified joint; M79.671 Pain in right foot
CPT/HCPCS: 11044; J3490; 88305-TC; 88312-TC

== ENCOUNTER 2022-08-21 14:31 | Outpatient (CLI) | payer BC ==
[2022-08-21 15:34] LABS: BASOPHILS # (AUTO) 0.1 K/uL (0.0-0.2); BASOPHILS % (AUTO) 0.6 % (0.0-2.0); EOSINOPHILS % (AUTO) 3.7 % (0.0-6.0); HEMATOCRIT 48 % (39-51); HEMOGLOBIN 15.4 g/dL (13.5-17.5); LYMPHOCYTES # (AUTO) 0.5 K/uL (0.8-4.8); LYMPHOCYTES % (AUTO) 4.7 % (20.0-44.0); MEAN CORPUSCULAR HGB CONC 32 g/dl (31.0-36.0); MEAN CORPUSCULAR VOLUME 89 fL (80-96); MONOCYTES # (AUTO) 0.6 K/uL (0.1-1.30); MONOCYTES % (AUTO) 6.1 % (2.0-12.0); NEUTROPHILS # (AUTO) 8.8 K/uL (1.8-8.9); NEUTROPHILS % (AUTO) 84.9 % (43.0-81.0); PLATELET COUNT (AUTO) 445 K/uL (150-450); RED BLOOD CELL COUNT(AUTO) 5.45 MIL/uL (4.5-6.0); WHITE BLOOD COUNT (AUTO) 10.3 K/uL (4.3-11.0)
[2022-08-21 15:44] LABS: CALCIUM, SERUM 8.4 mg/dL (8.5-10.1); POTASSIUM 4.2 mmol/L (3.5-5.1)
== END 2022-08-21 23:59 | disposition home or self-care (01) ==
LOC: LAB 14:31
PROVIDERS: ATTEND Podiatrist Foot & Ankle Surgery
DX: Z01.818 Encounter for other preprocedural examination (principal); Z20.822 Contact with and (suspected) exposure to COVID-19; I96 Gangrene, not elsewhere classified
CPT/HCPCS: 93005; 85025; 80048; 36415; 85730; U0003; C9803

== ENCOUNTER 2022-08-27 05:51 | Day surgery (SDC) | payer BC ==
[~2022-08-27] VITALS: Ht 185.4 cm; Wt 99.8 kg
--- NOTE | 2022-08-27 06:00 | NUR ---
YAHIR RECEIVED AMBULATORY ACCPD BY , 46Y/O MALE FOR PARTIAL AMPUTATION OF 5TH METATARSALS TODAY UNDER DR. DUMONT.. ALERT/ORIENTED X4. STARTED BY RN 20 GAUGE RIGHT HAND WITH GOOD BLOOD RETURN. CONSENTS SIGNED. PAIN ON AFFECTED METATARSAL KEPT NPO. SURGERY AT 0630.
--- NOTE | 2022-08-27 06:45 | NUR ---
MSRN WENT TO SURGERY VIA BED. ENDORSED TO INCOMING RN AT 0709
[2022-08-27] MEDS ORDERED: FAMOTIDINE/PF INJ 20 MG/2 ML VIAL IV ONE (06:52)
[2022-08-27] MEDS ORDERED: FENTANYL PF 250MCG/5ML AMPUL ONE (06:52)
[2022-08-27] MEDS ORDERED: LIDOCAINE 1% INJ 50 ML MDV IJ ONE (07:07)
--- NOTE | 2022-08-27 07:15 | NUR ---
MS RN NOTE RECEIVED PATIENT ON BED AWAKE, ALERT AND ORIENTED X 4, ABLE TO MAKE NEEDS KNOWN. AT BEDSIDE. ON ROOM AIR WITH EQUAL AND UNLABORED BREATHING WITH NO RESPIRATORY DISTRESS NOTED. PATIENT WITH RIGHT HAND G 20 SALINE LOCK PATENT AND INTACT. WITH DRESSING ON THE RIGHT FOOT. PATIENT ON NPO ORDERED FOR SCHEDULED PROCEDURE TODAY. PATIENT PICKED UP BY OR NURSES VIA BED FOR PROCEDURE. IN STABLE CONDITION.
[2022-08-27] MEDS ORDERED: VANCOMYCIN 1 GM VIAL ONE (08:01)
--- NOTE | 2022-08-27 09:00 | NUR ---
MS RN NOTE PATIENT BACK FROM [facility]. ALERT AND ORIENTED X 4, ABLE TO MAKE NEEDS KNOWN. AT BEDSIDE. ON ROOM AIR WITH EQUAL AND UNLABORED BREATHING WITH NO RESPIRATORY DISTRESS NOTED. PATIENT WITH RIGHT HAND G 20 SALINE LOCK PATENT AND INTACT. NO COMPLAIN OF PAIN AT THIS TIME. WITH DRESSING ON THE RIGHT FOOT S/P RIGHT 5TH TOE AMPUTATION. DRY AND INTACT. COMFORT MEASURES PROVIDED. VS 99/57, 98.1, BS191 PER OR, 102 BPM, SAT 95% ON ROOM AIR. IN STABLE CONDITION. WITH ORDER FROM DR. GOODE TO PR ONCE STABLE. BED IN LOWEST LOCKED POSITION, CALL LIGHT WITHIN REACH AT ALL TIMES. WILL CONTINUE WITH PLAN OF CARE.
[2022-08-27 12:00] VITALS: BP 107/60
--- NOTE | 2022-08-27 12:19 | NUR ---
MS RN NOTE PATIENT IS STABLE WITH NO SIGNS OF DISTRESS. ABLE TO TOLERATE CLEAR LIQUID AND PROGRESSED ORDERED. TOLERATED LUNCH. DENIES PAIN, NAUSEA AND VOMITING. COMFORT MEASURES PROVIDED. HEALTH TEACHING DONE AND VERBALIZED UNDERSTANDING AND APPRECIATION. IN STABLE CONDITION.
--- NOTE | 2022-08-27 14:30 | NUR ---
MS RN NOTE PATIENT DISCHARGED ORDERED IN STABLE CONDITION. PATIENT ACCOMPANIED TO LOBBY BY NURSE AND PICKED UP BY ON A PRIVATE CAR. IN STABLE CONDITION.
== END 2022-08-27 19:00 | disposition home or self-care (01) ==
LOC: DS 05:51 → MED 05:54 → UNDOADMIN 05:54 → UNDODISIN 14:30 → DS 19:00
PROVIDERS: ATTEND Podiatrist Foot & Ankle Surgery
DX: E11.621 Type 2 diabetes mellitus with foot ulcer (principal); I96 Gangrene, not elsewhere classified; E11.52 Type 2 diabetes mellitus with diabetic peripheral angiopathy with gangrene; I10 Essential (primary) hypertension; M86.8X7 Other osteomyelitis, ankle and foot; L97.518 Non-pressure chronic ulcer of other part of right foot with other specified severity; Z87.01 Personal history of pneumonia (recurrent); E78.5 Hyperlipidemia, unspecified; Z87.891 Personal history of nicotine dependence; Z98.890 Other specified postprocedural states; Z79.899 Other long term (current) drug therapy
CPT/HCPCS: 28054; 28825; 88312; 87070; 87081; 88311; 88305; 82962 ×2; J0690; J2704; J3490 ×3; J2765; J3370; J2405; J7030; J3010; G0378

== ENCOUNTER 2022-09-04 14:05 | Outpatient (CLI) | payer BC ==
[2022-09-04] MEDS ORDERED: COLLAGENASE 5 GM TUBE UD TP ONE (14:26)
== END 2022-09-04 23:59 | disposition home or self-care (01) ==
LOC: WOU 14:05
PROVIDERS: ATTEND Podiatrist Foot & Ankle Surgery
DX: E11.621 Type 2 diabetes mellitus with foot ulcer (principal); L97.512 Non-pressure chronic ulcer of other part of right foot with fat layer exposed; T81.31XD Disruption of external operation (surgical) wound, not elsewhere classified, subsequent encounter; B38.7 Disseminated coccidioidomycosis; M79.671 Pain in right foot; M25.571 Pain in right ankle and joints of right foot; Z79.4 Long term (current) use of insulin; Z79.84 Long term (current) use of oral hypoglycemic drugs
CPT/HCPCS: 11042

== ENCOUNTER 2022-09-10 14:31 | Outpatient (CLI) | payer BC | END 2022-09-10 23:59 | disposition home or self-care (01) | LOC: WOU 14:31 | PROVIDERS: ATTEND Podiatrist Foot & Ankle Surgery | DX: E11.621 Type 2 diabetes mellitus with foot ulcer (principal); L97.512 Non-pressure chronic ulcer of other part of right foot with fat layer exposed; Z79.4 Long term (current) use of insulin; Z79.84 Long term (current) use of oral hypoglycemic drugs; B38.7 Disseminated coccidioidomycosis; R60.0 Localized edema; M00.80 Arthritis due to other bacteria, unspecified joint; M25.571 Pain in right ankle and joints of right foot; Z89.421 Acquired absence of other right toe(s) | CPT/HCPCS: 11042 ==

== ENCOUNTER 2022-09-24 10:22 | Outpatient (CLI) | payer BC ==
[2022-09-24] MEDS ORDERED: COLLAGENASE 5 GM TUBE UD TP ONE (10:54)
== END 2022-09-24 23:59 | disposition home or self-care (01) ==
LOC: WOU 10:22
PROVIDERS: ATTEND Podiatrist Foot & Ankle Surgery
DX: E11.621 Type 2 diabetes mellitus with foot ulcer (principal); L97.512 Non-pressure chronic ulcer of other part of right foot with fat layer exposed; Z79.4 Long term (current) use of insulin; Z79.84 Long term (current) use of oral hypoglycemic drugs; R60.0 Localized edema; B38.7 Disseminated coccidioidomycosis; M25.571 Pain in right ankle and joints of right foot; Z87.891 Personal history of nicotine dependence
CPT/HCPCS: 11042

== ENCOUNTER 2022-10-08 10:42 | Outpatient (CLI) | payer BC ==
[2022-10-08] MEDS ORDERED: COLLAGENASE 5 GM TUBE UD TP ONE (10:49)
== END 2022-10-08 23:59 | disposition home or self-care (01) ==
LOC: WOU 10:42
PROVIDERS: ATTEND Podiatrist Foot & Ankle Surgery
DX: E11.621 Type 2 diabetes mellitus with foot ulcer (principal); L97.512 Non-pressure chronic ulcer of other part of right foot with fat layer exposed; M25.571 Pain in right ankle and joints of right foot; R60.0 Localized edema; B38.7 Disseminated coccidioidomycosis; Z79.4 Long term (current) use of insulin; Z79.84 Long term (current) use of oral hypoglycemic drugs
CPT/HCPCS: 11042

== ENCOUNTER 2022-10-15 10:08 | Outpatient (CLI) | payer BC ==
[2022-10-15] MEDS ORDERED: COLLAGENASE 5 GM TUBE UD TP ONE (10:21)
== END 2022-10-15 23:59 | disposition home or self-care (01) ==
LOC: WOU 10:08
PROVIDERS: ATTEND Podiatrist Foot & Ankle Surgery
DX: E11.621 Type 2 diabetes mellitus with foot ulcer (principal); L97.512 Non-pressure chronic ulcer of other part of right foot with fat layer exposed; M79.671 Pain in right foot; M25.571 Pain in right ankle and joints of right foot; R60.0 Localized edema; B38.7 Disseminated coccidioidomycosis; Z79.4 Long term (current) use of insulin; Z79.84 Long term (current) use of oral hypoglycemic drugs
CPT/HCPCS: 11042

== ENCOUNTER 2022-10-23 13:32 | Outpatient (CLI) | payer BC | END 2022-10-23 23:59 | disposition home or self-care (01) | LOC: WOU 13:32 | PROVIDERS: ATTEND Podiatrist Foot & Ankle Surgery | DX: E11.621 Type 2 diabetes mellitus with foot ulcer (principal); L97.512 Non-pressure chronic ulcer of other part of right foot with fat layer exposed; B38.7 Disseminated coccidioidomycosis; R60.0 Localized edema; M25.571 Pain in right ankle and joints of right foot; Z89.421 Acquired absence of other right toe(s); Z87.891 Personal history of nicotine dependence; Z79.4 Long term (current) use of insulin; Z79.84 Long term (current) use of oral hypoglycemic drugs | CPT/HCPCS: 11042 ==

== ENCOUNTER 2022-11-05 10:19 | Outpatient (CLI) | payer BC | END 2022-11-05 23:59 | disposition home or self-care (01) | LOC: WOU 10:19 | PROVIDERS: ATTEND Podiatrist Foot & Ankle Surgery | DX: E11.621 Type 2 diabetes mellitus with foot ulcer (principal); L97.512 Non-pressure chronic ulcer of other part of right foot with fat layer exposed; Z79.4 Long term (current) use of insulin; Z79.84 Long term (current) use of oral hypoglycemic drugs; M79.671 Pain in right foot; M25.571 Pain in right ankle and joints of right foot; B38.7 Disseminated coccidioidomycosis | CPT/HCPCS: 11042 ==

== ENCOUNTER 2022-11-15 10:12 | Outpatient (CLI) | payer BC ==
[2022-11-15] MEDS ORDERED: COLLAGENASE 5 GM TUBE UD TP ONE (10:21)
== END 2022-11-15 23:59 | disposition home or self-care (01) ==
LOC: WOU 10:12
PROVIDERS: ATTEND Podiatrist Foot & Ankle Surgery
DX: E11.621 Type 2 diabetes mellitus with foot ulcer (principal); L97.512 Non-pressure chronic ulcer of other part of right foot with fat layer exposed; R60.0 Localized edema; B38.7 Disseminated coccidioidomycosis; M25.571 Pain in right ankle and joints of right foot; Z79.4 Long term (current) use of insulin; Z79.84 Long term (current) use of oral hypoglycemic drugs
CPT/HCPCS: 11042

== ENCOUNTER 2022-11-29 11:34 | Outpatient (CLI) | payer BC | END 2022-11-29 23:59 | disposition home or self-care (01) | LOC: WOU 11:34 | PROVIDERS: ATTEND Podiatrist Foot & Ankle Surgery | DX: S90.31XA Contusion of right foot, initial encounter (principal); X58.XXXA Exposure to other specified factors, initial encounter; Y92.89 Other specified places as the place of occurrence of the external cause; B35.1 Tinea unguium; R60.0 Localized edema; E11.9 Type 2 diabetes mellitus without complications; Z79.84 Long term (current) use of oral hypoglycemic drugs; B38.7 Disseminated coccidioidomycosis; M25.571 Pain in right ankle and joints of right foot; M79.671 Pain in right foot; Z89.421 Acquired absence of other right toe(s) | CPT/HCPCS: G0463 ==

== ENCOUNTER 2023-02-21 10:36 | Outpatient (CLI) | payer BC ==
[2023-02-21] MEDS ORDERED: COLLAGENASE 5 GM TUBE UD TP ONE (10:43)
== END 2023-02-21 23:59 | disposition home or self-care (01) ==
LOC: WOU 10:36
PROVIDERS: ATTEND Podiatrist Foot & Ankle Surgery
DX: E11.621 Type 2 diabetes mellitus with foot ulcer (principal); L97.522 Non-pressure chronic ulcer of other part of left foot with fat layer exposed; B38.7 Disseminated coccidioidomycosis; R60.0 Localized edema; M25.571 Pain in right ankle and joints of right foot; M79.671 Pain in right foot; Z79.4 Long term (current) use of insulin; Z79.84 Long term (current) use of oral hypoglycemic drugs
CPT/HCPCS: 11042

== ENCOUNTER 2023-03-04 10:14 | Outpatient (CLI) | payer BC ==
[2023-03-04] MEDS ORDERED: COLLAGENASE 5 GM TUBE UD TP ONE (10:42)
== END 2023-03-04 23:59 | disposition home or self-care (01) ==
LOC: WOU 10:14
PROVIDERS: ATTEND Podiatrist Foot & Ankle Surgery
DX: E11.52 Type 2 diabetes mellitus with diabetic peripheral angiopathy with gangrene (principal); I96 Gangrene, not elsewhere classified; E11.621 Type 2 diabetes mellitus with foot ulcer; L97.512 Non-pressure chronic ulcer of other part of right foot with fat layer exposed; L97.518 Non-pressure chronic ulcer of other part of right foot with other specified severity; M25.571 Pain in right ankle and joints of right foot; M79.671 Pain in right foot; B38.7 Disseminated coccidioidomycosis; Z79.4 Long term (current) use of insulin; Z79.84 Long term (current) use of oral hypoglycemic drugs
CPT/HCPCS: 11042

== ENCOUNTER 2023-03-28 10:01 | Outpatient (CLI) | payer BC ==
[2023-03-28] MEDS ORDERED: COLLAGENASE 5 GM TUBE UD TP ONE (10:04)
== END 2023-03-28 23:59 | disposition home or self-care (01) ==
LOC: WOU 10:01
PROVIDERS: ATTEND Podiatrist Foot & Ankle Surgery
DX: E11.621 Type 2 diabetes mellitus with foot ulcer (principal); L97.522 Non-pressure chronic ulcer of other part of left foot with fat layer exposed; E11.52 Type 2 diabetes mellitus with diabetic peripheral angiopathy with gangrene; I96 Gangrene, not elsewhere classified; Z79.4 Long term (current) use of insulin; Z79.84 Long term (current) use of oral hypoglycemic drugs; B38.7 Disseminated coccidioidomycosis; M79.671 Pain in right foot; M25.571 Pain in right ankle and joints of right foot; R60.0 Localized edema
CPT/HCPCS: 11042

== ENCOUNTER 2024-06-30 08:45 | Day surgery (SDC) | payer BC ==
[~2024-06-30] VITALS: Ht 185.4 cm; Wt 95.3 kg
[2024-06-30 10:03] VITALS: TEMP 98
[2024-06-30 10:07] LABS: BASOPHILS # (AUTO) 0.2 K/uL (0.0-0.2); BASOPHILS % (AUTO) 1.3 % (0.0-2.0); EOSINOPHILS # (AUTO) 0.6 K/uL (0.0-0.7); EOSINOPHILS % (AUTO) 4.8 % (0.0-6.0); HEMATOCRIT 41 % (39-51); HEMOGLOBIN 13.1 g/dL (13.5-17.5); LYMPHOCYTES # (AUTO) 0.4 K/uL (0.8-4.8); LYMPHOCYTES % (AUTO) 2.8 % (20.0-44.0); MEAN CORPUSCULAR HEMOGLOBIN 27 PG (26.0-33.0); MEAN CORPUSCULAR HGB CONC 32 g/dl (31.0-36.0); MEAN CORPUSCULAR VOLUME 85 fL (80-96); MONOCYTES # (AUTO) 0.9 K/uL (0.1-1.30); MONOCYTES % (AUTO) 7.2 % (2.0-12.0); NEUTROPHILS # (AUTO) 10.6 K/uL (1.8-8.9); NEUTROPHILS % (AUTO) 83.9 % (43.0-81.0); PLATELET COUNT (AUTO) 504 K/uL (150-450); RED BLOOD CELL COUNT(AUTO) 4.86 MIL/uL (4.5-6.0); RED CELL DISTRIBUTION WIDTH 17.2 % (11.5-15.0); WHITE BLOOD COUNT (AUTO) 12.6 K/uL (4.3-11.0)
[2024-06-30 10:34] LABS: BILIRUBIN,TOTAL 0.2 mg/dL (0.2-1.0); CALCIUM, SERUM 8.1 mg/dL (8.5-10.1); CREATININE 1.4 mg/dL (0.6-1.3); POTASSIUM 4.7 mmol/L (3.5-5.1); TOTAL PROTEIN, SERUM 4.9 g/dL (6.4-8.2)
[2024-06-30 11:16] LABS: ALBUMIN 1.4 g/dL (3.4-5.0)
== END 2024-06-30 18:00 | disposition home or self-care (01) ==
LOC: CATHLAB 08:45 → ICU 14:15 → UNDOADMIN 14:15 → CATHLAB 18:00 → UNDODISIN 20:15
PROVIDERS: ATTEND Surgery Vascular Surgery
DX: E11.52 Type 2 diabetes mellitus with diabetic peripheral angiopathy with gangrene (principal); I77.1 Stricture of artery; I10 Essential (primary) hypertension; I25.2 Old myocardial infarction; E78.5 Hyperlipidemia, unspecified; J98.11 Atelectasis; J90 Pleural effusion, not elsewhere classified; M19.90 Unspecified osteoarthritis, unspecified site; Z86.711 Personal history of pulmonary embolism; Z87.01 Personal history of pneumonia (recurrent); Z86.718 Personal history of other venous thrombosis and embolism; Z79.01 Long term (current) use of anticoagulants; Z79.4 Long term (current) use of insulin; Z79.899 Other long term (current) drug therapy
CPT/HCPCS: 37225; 71045; 93005; 85025; 36415; 80053; 82962; 75625; 75710; 99153; 37211; 37229; 99152; 85347; J3010; J1644 ×6; C1714; C1769 ×3; J7040; J2250; J3490; Q9967; C1887 ×3; C1760; C1725; C1894; C1726; 36246; 37233; G0269; G0378; G0500

== ENCOUNTER 2024-07-02 09:30 | Outpatient (CLI) | payer BC ==
[2024-07-02 11:19] LABS: CALCIUM, SERUM 8.1 mg/dL (8.5-10.1); CREATININE 1.4 mg/dL (0.6-1.3); POTASSIUM 5.8 mmol/L (3.5-5.1)
== END 2024-07-02 23:59 | disposition home or self-care (01) ==
LOC: LAB 09:30
PROVIDERS: ATTEND Surgery Vascular Surgery
DX: N18.9 Chronic kidney disease, unspecified (principal)
CPT/HCPCS: 36415; 80048-TC

== ENCOUNTER 2024-10-19 11:49 | Outpatient (CLI) | payer BC | END 2024-10-19 23:59 | disposition home or self-care (01) | LOC: WOU 11:49 | PROVIDERS: ATTEND Podiatrist Foot & Ankle Surgery | DX: E11.621 Type 2 diabetes mellitus with foot ulcer (principal); L97.522 Non-pressure chronic ulcer of other part of left foot with fat layer exposed; L97.525 Non-pressure chronic ulcer of other part of left foot with muscle involvement without evidence of necrosis; E11.622 Type 2 diabetes mellitus with other skin ulcer; L97.315 Non-pressure chronic ulcer of right ankle with muscle involvement without evidence of necrosis; Z79.4 Long term (current) use of insulin; Z79.84 Long term (current) use of oral hypoglycemic drugs; M79.675 Pain in left toe(s) | CPT/HCPCS: G0463 ==

== ENCOUNTER 2024-10-25 12:33 | Inpatient (IN) | payer BC ==
[~2024-10-25] VITALS: Ht 185.4 cm; Wt 86.3 kg
[2024-10-25 13:48] LABS: CALCIUM, SERUM 8.3 mg/dL (8.5-10.1); CREATININE 1.2 mg/dL (0.6-1.3); POTASSIUM 4.9 mmol/L (3.5-5.1)
[2024-10-25 13:56] LABS: BASOPHILS # (AUTO) 0.1 K/uL (0.0-0.2); BASOPHILS % (AUTO) 1.2 % (0.0-2.0); EOSINOPHILS # (AUTO) 0.3 K/uL (0.0-0.7); EOSINOPHILS % (AUTO) 3.9 % (0.0-6.0); HEMATOCRIT 34 % (39-51); HEMOGLOBIN 11.6 g/dL (13.5-17.5); LYMPHOCYTES # (AUTO) 0.2 K/uL (0.8-4.8); LYMPHOCYTES % (AUTO) 2.4 % (20.0-44.0); MEAN CORPUSCULAR HEMOGLOBIN 31 PG (26.0-33.0); MEAN CORPUSCULAR HGB CONC 35 g/dl (31.0-36.0); MEAN CORPUSCULAR VOLUME 89 fL (80-96); MONOCYTES # (AUTO) 0.6 K/uL (0.1-1.30); MONOCYTES % (AUTO) 7.7 % (2.0-12.0); NEUTROPHILS # (AUTO) 6.2 K/uL (1.8-8.9); NEUTROPHILS % (AUTO) 84.8 % (43.0-81.0); PLATELET COUNT (AUTO) 395 K/uL (150-450); RED BLOOD CELL COUNT(AUTO) 3.75 MIL/uL (4.5-6.0); RED CELL DISTRIBUTION WIDTH 17.4 % (11.5-15.0); WHITE BLOOD COUNT (AUTO) 7.3 K/uL (4.3-11.0)
[2024-10-25 14:36] LABS: INR 1.01 (0.91-1.10); PARTIAL THROMBOPLASTIN TIME 30.8 SEC (24.3-34.3); PROTHROMBIN TIME 10.7 SECS (9.2-11.1)
[2024-10-25] MEDS ORDERED: MONT10TA22 PO (14:37)
[2024-10-25] MEDS ORDERED: HYDR-3972 PO (14:37)
[2024-10-25] MEDS ORDERED: APIX5TAB PO (14:37)
[2024-10-25] MEDS ORDERED: PANT40TA2 PO (14:37)
[2024-10-25] MEDS ORDERED: FLUT16SP BNOSTRILS (14:37)
[2024-10-25] MEDS ORDERED: METO25TA4 PO (14:37)
[2024-10-25] MEDS ORDERED: ENOX30DI5 SQ (14:37)
[2024-10-25] MEDS ORDERED: FENO160T PO (14:37)
[2024-10-25] MEDS ORDERED: ALBU6.7H9 IH (14:37)
[2024-10-25] MEDS ORDERED: GABA-532 PO (14:37)
[2024-10-25] MEDS ORDERED: DAPA10TA PO (14:37)
[2024-10-25] MEDS ORDERED: LORA10TA68 PO (14:37)
[2024-10-25] MEDS: CEFAZOLIN 2 GM in IV D5W 100 ML IV ONE (14:45)
[2024-10-25 15:30] VITALS: BP 130/83; TEMP 98.1; O2SAT 100
[2024-10-25] MEDS ORDERED: ACETAMINOPHEN 325 MG TABLET PO PRN (16:00)
[2024-10-25] MEDS ORDERED: ONDANSETRON HCL/PF 4 MG/2 ML VIAL IVP PRN (16:00)
[2024-10-25 18:00] VITALS: BP 130/83; TEMP 98.1; O2SAT 100
[2024-10-25] MEDS ORDERED: DEXTROSE 50%-WATER 50 ML DISP.SYRIN IV PRN (18:30)
[2024-10-25] MEDS ORDERED: HYDROCODONE/APAP 5/325MG TABLET PO PRN (19:00)
[2024-10-25] MEDS ORDERED: MONTELUKAST SODIUM (10MG) 10 MG TABLET PO PRN (19:00)
[2024-10-25] MEDS ORDERED: ENOXAPARIN SODIUM 30 MG/0.3 ML DISP.SYRIN SQ SCH (19:00)
[2024-10-25] MEDS ORDERED: FLUTICASONE PROPIONATE 16 GM BOTTLE NS PRN (19:00)
[2024-10-25] MEDS ORDERED: LORATADINE 10 MG TABLET PO PRN (19:00)
[2024-10-25 20:00] VITALS: BP 114/84; TEMP 97.5; O2SAT 100
[2024-10-25] MEDS: HYDROCODONE/APAP 5/325MG TABLET PO PRN (21:06)
[2024-10-25] MEDS: GABAPENTIN 300 MG CAPSULE PO SCH (21:07)
[2024-10-25] MEDS: ATORVASTATIN 10 MG TABLET PO SCH (21:07)
[2024-10-25 21:46] VITALS: O2SAT 98
[2024-10-25] MEDS: ALBUTEROL FS 2.5 MG/3 ML VIAL.NEB NEB PRN (21:49)
[2024-10-25] MEDS: IPRATROPIUM NEB FS 0.5 MG/2.5 ML AMPUL.NEB NEB PRN (21:49)
[2024-10-25] MEDS: BLOOD SUGAR DIAGNOSTIC 1 EACH STRIP IN SCH (21:58)
[2024-10-25] MEDS: INSULIN REGULAR, HUMAN 100 UNIT/ML 3 ML VIAL SQ PRN (21:59)
[2024-10-25 22:01] VITALS: O2SAT 100
[2024-10-26 06:48] LABS: BASOPHILS # (AUTO) 0.2 K/uL (0.0-0.2); BASOPHILS % (AUTO) 1.8 % (0.0-2.0); EOSINOPHILS # (AUTO) 0.4 K/uL (0.0-0.7); EOSINOPHILS % (AUTO) 4.9 % (0.0-6.0); HEMATOCRIT 37 % (39-51); LYMPHOCYTES # (AUTO) 0.2 K/uL (0.8-4.8); LYMPHOCYTES % (AUTO) 2.5 % (20.0-44.0); MEAN CORPUSCULAR HEMOGLOBIN 28 PG (26.0-33.0); MEAN CORPUSCULAR HGB CONC 32 g/dl (31.0-36.0); MEAN CORPUSCULAR VOLUME 86 fL (80-96); MONOCYTES # (AUTO) 0.6 K/uL (0.1-1.30); MONOCYTES % (AUTO) 6.7 % (2.0-12.0); NEUTROPHILS # (AUTO) 7.5 K/uL (1.8-8.9); NEUTROPHILS % (AUTO) 84.1 % (43.0-81.0); PLATELET COUNT (AUTO) 591 K/uL (150-450); RED BLOOD CELL COUNT(AUTO) 4.34 MIL/uL (4.5-6.0); RED CELL DISTRIBUTION WIDTH 16.6 % (11.5-15.0)
[2024-10-26] MEDS ORDERED: FENTANYL PF 100MCG/2ML AMPUL ONE (06:55)
[2024-10-26 06:56] LABS: PROTHROMBIN TIME 10.6 SECS (9.2-11.1)
[2024-10-26] MEDS ORDERED: ANESTHESIA TRAY IN PYXIS 1 EA TRAY MC ONE (06:56)
[2024-10-26] MEDS ORDERED: VANCOMYCIN 1 GM VIAL ONE (06:57)
[2024-10-26] MEDS ORDERED: LIDOCAINE 1% INJ 50 ML MDV IJ ONE (06:57)
[2024-10-26] MEDS ORDERED: LIDOCAINE 1%-EPI 1:100,000 20 ML VIAL ONE (06:57)
[2024-10-26 07:00] LABS: CALCIUM, SERUM 8.1 mg/dL (8.5-10.1); CREATININE 1.3 mg/dL (0.6-1.3); PHOSPHORUS 4.1 mg/dL (2.5-4.9); POTASSIUM 5.8 mmol/L (3.5-5.1)
[2024-10-26] MEDS ORDERED: MIDAZOLAM HCL 2 MG/2ML VIAL ONE (07:19)
[2024-10-26] MEDS ORDERED: BACITRACIN ZINC OINT (15 GM) 15 GM TUBE TP ONE (07:33)
[2024-10-26] MEDS: INSULIN GLARGINE, 100 UNIT/ML CARTRIDGE SQ SCH ×2 (09:00→21:46)
[2024-10-26] MEDS: PANTOPRAZOLE 40 MG TABLET.DR PO SCH (09:11)
[2024-10-26] MEDS: FENOFIBRATE NANOCRYS (145 MG) 145 MG TABLET PO SCH (09:11)
[2024-10-26] MEDS: DAPAGLIFLOZIN PROPANEDIOL 10 MG TABLET PO SCH (09:11)
[2024-10-26] MEDS: EZETIMIBE 10 MG TABLET PO SCH (09:11)
[2024-10-26] MEDS: METFORMIN 500 MG TABLET PO SCH (09:11)
[2024-10-26] MEDS: METOPROLOL SUCCINATE 25 MG TAB.SR.24H PO SCH (09:12)
[2024-10-26 10:00] VITALS: BP 123/88; O2SAT 98
[2024-10-26] MEDS: MORPHINE SULFATE INJ 4 MG/ML DISP.SYRIN IV PRN (10:39)
[2024-10-26] MEDS: SODIUM ZIRCONIUM CYCLOSILICATE 5 GM POWD.PACK PO ONE (12:31)
[2024-10-26] MEDS: VANCOMYCIN 1.5 GM in IV D5W 500 ML IV ONE (12:32)
[2024-10-26] MEDS ORDERED: CEFTRIAXONE 1 G VIAL IM SCH (13:00)
[2024-10-26 13:22] LABS: CALCIUM, SERUM 8.1 mg/dL (8.5-10.1); CREATININE 1.3 mg/dL (0.6-1.3); POTASSIUM 5.1 mmol/L (3.5-5.1)
[2024-10-26] MEDS: METRONIDAZOLE 500MG/ NS 100ML 500 MG in PREMIX 1 EA IV SCH (14:17)
[2024-10-26] MEDS: CEFTRIAXONE 1 G in IV D5W 50 ML IV SCH (15:33)
[2024-10-26 16:47] VITALS: BP 110/90; TEMP 99.1; O2SAT 96
[2024-10-26 19:16] LABS: APPEARANCE,URINE CLEAR (CLEAR); BILIRUBIN,URINE NEGATIVE (NEGATIVE); BLOOD, URINE NEGATIVE Ery/uL (NEGATIVE); COLOR,URINE YELLOW (YELLOW); KETONES,URINE NEGATIVE (NEGATIVE); LEUKOCYTE ESTERASE ,URINE NEGATIVE (NEGATIVE); NITRITE, URINE NEGATIVE (NEGATIVE); PH,URINE 5.5 (5.0-8.0); PROTEIN,URINE TRACE mg/dl (NEGATIVE); UGLUCOSE 3+ mg/dL (NEGATIVE); UROBILINOGEN,URINE 0.2 EU/dL (0.2)
[2024-10-26 19:23] LABS: CREATININE, URINE 41.1 MG/DL (30.0-125.0); URINE SODIUM, RANDOM < 5 mmol/l (40-220); URINE TOTAL PROTEIN 36.7 mg/dL (0-11.9)
[2024-10-26 19:30] LABS: ADD URINE CULTURE YES; BACTERIA,URINE 1+ /HPF (None Seen); SQUAMOUS EPITHELIAL CELL,UR 0-2 /HPF (None Seen); WBC,URINE NONE SEEN /HPF (0-3)
[2024-10-26 19:31] LABS: RBC,URINE 0-2 /HPF (0-2)
[2024-10-26 19:32] LABS: URINE AMORPHOUS URATE Few /HPF (None Seen)
[2024-10-26] MEDS: VANCOMYCIN 750 MG in IV D5W 250 ML IV SCH (19:59)
[2024-10-26 20:00] VITALS: BP 113/87; TEMP 98.4; O2SAT 100
[2024-10-26 20:59] LABS: EOSINOPHIL,URINE None Seen
[2024-10-26 21:35] VITALS: BP 144/60; TEMP 98.4; O2SAT 100
[2024-10-27 06:40] LABS: BASOPHILS # (AUTO) 0.1 K/uL (0.0-0.2); BASOPHILS % (AUTO) 1.4 % (0.0-2.0); EOSINOPHILS # (AUTO) 0.3 K/uL (0.0-0.7); EOSINOPHILS % (AUTO) 4.1 % (0.0-6.0); HEMATOCRIT 37 % (39-51); HEMOGLOBIN 11.9 g/dL (13.5-17.5); LYMPHOCYTES # (AUTO) 0.3 K/uL (0.8-4.8); LYMPHOCYTES % (AUTO) 3.3 % (20.0-44.0); MEAN CORPUSCULAR HEMOGLOBIN 28 PG (26.0-33.0); MEAN CORPUSCULAR HGB CONC 33 g/dl (31.0-36.0); MEAN CORPUSCULAR VOLUME 85 fL (80-96); MONOCYTES # (AUTO) 0.7 K/uL (0.1-1.30); MONOCYTES % (AUTO) 9.4 % (2.0-12.0); NEUTROPHILS # (AUTO) 6.2 K/uL (1.8-8.9); NEUTROPHILS % (AUTO) 81.8 % (43.0-81.0); PLATELET COUNT (AUTO) 562 K/uL (150-450); RED BLOOD CELL COUNT(AUTO) 4.27 MIL/uL (4.5-6.0); RED CELL DISTRIBUTION WIDTH 16.4 % (11.5-15.0); WHITE BLOOD COUNT (AUTO) 7.6 K/uL (4.3-11.0)
[2024-10-27 07:11] LABS: BILIRUBIN,TOTAL 0.2 mg/dL (0.2-1.0); CREATININE 1.4 mg/dL (0.6-1.3); MAGNESIUM 2.1 mg/dL (1.8-2.4); PHOSPHORUS 4.8 mg/dL (2.5-4.9); POTASSIUM 5.3 mmol/L (3.5-5.1); TOTAL PROTEIN, SERUM 4.6 g/dL (6.4-8.2)
[2024-10-27 07:30] VITALS: BP 107/77; TEMP 97.3; O2SAT 99
[2024-10-27 08:00] VITALS: BP 107/77; TEMP 97.3; O2SAT 99
[2024-10-27] MEDS ORDERED: CLOP75TA15 PO (10:58)
[2024-10-27] MEDS: APIXABAN 5 MG TABLET PO SCH (11:04)
[2024-10-27] MEDS: CLOPIDOGREL BISULFATE 75 MG TABLET PO SCH (11:52)
[2024-10-27] MEDS: SODIUM ZIRCONIUM CYCLOSILICATE 5 GM POWD.PACK PO ONE (12:14)
[2024-10-27 16:00] VITALS: BP 103/73; TEMP 98.2; O2SAT 96
[2024-10-27 16:34] VITALS: BP 103/73; TEMP 98.1; O2SAT 96
[2024-10-27 19:55] LABS: CALCIUM, SERUM 7.9 mg/dL (8.5-10.1); CREATININE 1.4 mg/dL (0.6-1.3); POTASSIUM 5.1 mmol/L (3.5-5.1)
[2024-10-27 20:00] VITALS: BP 108/76; TEMP 98.2; O2SAT 97
[2024-10-27] MEDS: VANCOMYCIN 750 MG in IV D5W 250 ML IV SCH (23:36)
[2024-10-28 06:07] LABS: PTH, INTACT 38 pg/mL (15-65)
[2024-10-28 06:32] LABS: BASOPHILS # (AUTO) 0.1 K/uL (0.0-0.2); BASOPHILS % (AUTO) 0.5 % (0.0-2.0); EOSINOPHILS # (AUTO) 0.3 K/uL (0.0-0.7); EOSINOPHILS % (AUTO) 3.2 % (0.0-6.0); HEMATOCRIT 37 % (39-51); HEMOGLOBIN 11.9 g/dL (13.5-17.5); LYMPHOCYTES # (AUTO) 0.3 K/uL (0.8-4.8); LYMPHOCYTES % (AUTO) 2.5 % (20.0-44.0); MEAN CORPUSCULAR HEMOGLOBIN 27 PG (26.0-33.0); MEAN CORPUSCULAR HGB CONC 32 g/dl (31.0-36.0); MEAN CORPUSCULAR VOLUME 85 fL (80-96); MONOCYTES # (AUTO) 0.7 K/uL (0.1-1.30); MONOCYTES % (AUTO) 7.1 % (2.0-12.0); NEUTROPHILS # (AUTO) 8.8 K/uL (1.8-8.9); NEUTROPHILS % (AUTO) 86.7 % (43.0-81.0); PLATELET COUNT (AUTO) 601 K/uL (150-450); RED BLOOD CELL COUNT(AUTO) 4.35 MIL/uL (4.5-6.0); RED CELL DISTRIBUTION WIDTH 16.6 % (11.5-15.0); WHITE BLOOD COUNT (AUTO) 10.1 K/uL (4.3-11.0)
[2024-10-28 07:00] LABS: CALCIUM, SERUM 7.8 mg/dL (8.5-10.1); CREATININE 1.4 mg/dL (0.6-1.3); PHOSPHORUS 4.7 mg/dL (2.5-4.9); POTASSIUM 4.7 mmol/L (3.5-5.1)
[2024-10-28 07:30] VITALS: BP 119/86; TEMP 97.7; O2SAT 98
[2024-10-28] MEDS ORDERED: AMOX-430 PO (12:41)
[2024-10-28] MEDS ORDERED: DOXY-326 PO (12:41)
[2024-10-28 16:15] VITALS: O2SAT 97
[2024-10-28 16:17] VITALS: BP 101/79; TEMP 98.2; O2SAT 99
[2024-10-28 16:26] VITALS: O2SAT 100
== END 2024-10-28 20:10 | disposition home or self-care (01) | DRG 623 ==
LOC: ER 12:44 → MED 14:45
PROVIDERS: ADMIT Nurse Practitioner Acute Care
PROC: 0HRMXK3 Replacement of Right Foot Skin with Nonautologous Tissue Substitute, Full Thickness, External Approach (ICD-10-PCS; 2024-10-26)
PROC: 0QBR0ZZ Excision of Left Toe Phalanx, Open Approach (ICD-10-PCS; 2024-10-26)
PROC: 0HRNXK3 Replacement of Left Foot Skin with Nonautologous Tissue Substitute, Full Thickness, External Approach (ICD-10-PCS; principal; 2024-10-26 08:30)
PROC: 0JBQ0ZZ Excision of Right Foot Subcutaneous Tissue and Fascia, Open Approach (ICD-10-PCS; 2024-10-26 08:30)
DX: E11.69 Type 2 diabetes mellitus with other specified complication (principal); D68.59 Other primary thrombophilia; L97.319 Non-pressure chronic ulcer of right ankle with unspecified severity; M86.172 Other acute osteomyelitis, left ankle and foot; I13.0 Hypertensive heart and chronic kidney disease with heart failure and stage 1 through stage 4 chronic kidney disease, or unspecified chronic kidney disease; E87.1 Hypo-osmolality and hyponatremia; I50.42 Chronic combined systolic (congestive) and diastolic (congestive) heart failure; J98.11 Atelectasis; E11.621 Type 2 diabetes mellitus with foot ulcer; E11.22 Type 2 diabetes mellitus with diabetic chronic kidney disease; E11.51 Type 2 diabetes mellitus with diabetic peripheral angiopathy without gangrene; E11.622 Type 2 diabetes mellitus with other skin ulcer; Z97.8 Presence of other specified devices; E78.5 Hyperlipidemia, unspecified; E78.1 Pure hyperglyceridemia; D64.9 Anemia, unspecified; E66.9 Obesity, unspecified; I25.2 Old myocardial infarction; L97.529 Non-pressure chronic ulcer of other part of left foot with unspecified severity; M19.071 Primary osteoarthritis, right ankle and foot; M19.072 Primary osteoarthritis, left ankle and foot; M89.8X9 Other specified disorders of bone, unspecified site; N18.9 Chronic kidney disease, unspecified; N17.9 Acute kidney failure, unspecified; Z86.711 Personal history of pulmonary embolism; Z98.890 Other specified postprocedural states; Z79.51 Long term (current) use of inhaled steroids; Z79.01 Long term (current) use of anticoagulants; Z79.899 Other long term (current) drug therapy; Z79.84 Long term (current) use of oral hypoglycemic drugs; Z79.4 Long term (current) use of insulin; E87.5 Hyperkalemia; Z86.79 Personal history of other diseases of the circulatory system; Z68.25 Body mass index [BMI] 25.0-25.9, adult
CPT/HCPCS: 36415; 71045-TC; 76770-TC; 80048-TC; 80053-TC; 80202-TC; 81001; 82550-TC; 82570-TC; 82962-TC; 83735-TC; 83970; 84100-TC; 84155; 84165; 84300-TC; 85025-TC; 85610-TC; 85730-TC; 86850-TC; 87081-TC; 87086-TC; 87102-TC; 94760-TC; 94799-TC; 97112-TC; 97116-TC; 97530-TC; A2007; A4216; A4223; A6253; G0378; J0690; J0696; J1815; J2250; J2270; J2704; J3010; J3370; J3371; J3490; J7030; J7040; J7050; J7060